=== PATIENT | female | born 1995 | race Asian ===

== ENCOUNTER 2018-10-06 07:25 | Emergency (ER) | payer OTHER, MEDICAID, SELFPAY ==
[2018-10-06 07:30] VITALS: BP 150/90; PULSE 84; RESP 12; TEMP 36.4; O2SAT 99
--- NOTE | 2018-10-06 07:59 | DI.US.S_ITS ---
PROCEDURE: US PELVIC COMPLETE INDICATIONS: ABNORMAL VAGINAL BLEEDING TECHNIQUE: Real-time scanning was performed of the pelvic organs, with image documentation. Additional endovaginal scanning was necessary due to incomplete visualization of the adnexal and endometrial structures by transabdominal scanning. COMPARISON: None. FINDINGS: Transabdominal scanning: Limited scanning through the kidneys shows no hydronephrosis. No pathologic free abdominal or pelvic fluid. Endovaginal scanning: Uterus: Uterus is anteverted measuring 6.3 x 3.5 x 5.1 cm. The endometrium measures 7.2 mm in combined thickness. Ovaries: Ovaries are normal in size and echotexture, measuring 2.4 x 2.2 x 2.7 cm on the right and 2.4 x 1.2 x 2.8 cm on the left. Numerous small ovarian cysts are seen within the ovaries compatible with ovarian follicles. IMPRESSION: Normal pelvic ultrasound exam. No ultrasound findings to explain vaginal bleeding. Dictated by: Geovani Lockwood M.D. on 10/06/2018 at 9:23 Approved by: Geovani Lockwood M.D. on 10/06/2018 at 9:27
--- NOTE | 2018-10-06 08:08 | ED_ITS ---
HPI - Female Genitourinary General Chief complaint: Vaginal Bleeding Stated complaint: vag bleeding x1 day Time Seen by Provider: 10/06/18 07:36 Source: patient Mode of arrival: ambulatory Limitations: no limitations History of Present Illness HPI Narrative: Patient is a 23-year-old female presents with vaginal bleeding. She states that she has not had a period since July she actually was at her physician's office where she had blood work. Yesterday and today she started some very light spotting. She says she has no abdominal pain or cramping. She says this is abnormal for her. She was tested for at the office and again today both are negative. She has appointment with her PCP in 2 days. She denies any nausea vomiting or UTI symptoms or any other symptoms. She states that she is actively trying to get MD Complaint: vaginal bleeding Severity: mild Severity scale (1-10): 1 Relieving factors: none Exacerbating factors: none Vaginal discharge: blood Review of Systems Review of Systems GENERAL: Denies chills, fatigue, malaise, fever, sweats, travel HEENT: Denies sinus pain, ear pain, sore throat, difficulty swallowing, neck pain RESPIRATORY: Denies dyspnea, cough, wheezing, hemoptysis, sputum. CARDIOVASCULAR: Denies chest pain, palpitations, orthopnea, edema GASTROINTESTINAL: Denies nausea, vomiting, abdominal pain, diarrhea, constipation, melena. : Denies dysuria, frequency, incontinence, hematuria, urinary retention, flank pain. MUSCULOSKELETAL: Denies weakness, joint pain, or bony pain SKIN: No rash, no erythema, no pruritus NEUROLOGIC: Denies weakness, dizziness, headache, numbness, change in speech, confusion PSYCHIATRIC: No concerning psychosocial issues. 12 point review of systems is negative except for those stated above and HPI [facility] Medical History Patient denies medical problems (Acute) Smoking Status: Never smoker alcohol intake: never substance use type: does not use Social History Smoking Status: Never smoker alcohol intake: never substance use type: does not use Exam Initial Vital Signs Initial Vital Signs: Vital Signs Temperature 97.6 F 10/06/18 07:30 Pulse Rate 84 10/06/18 07:30 Respiratory Rate 12 10/06/18 07:30 Blood Pressure 150/90 H 10/06/18 07:30 Pulse Oximetry 99 10/06/18 07:30 GENERAL: Well-appearing, well-nourished and in no acute distress. HEENT: Head atraumatic,EOMI, pupils reactive CARDIOVASCULAR: Regular rate and rhythm without murmurs, rubs or gallops. RESPIRATORY: Breath sounds equal bilaterally, no wheezes rales or rhonchi. ABDOMEN: Soft, nontender. Normoactive bowel sounds all 4 quadrants. No guarding or rebound. : No CVA tenderness EXTREMITIES: Normal range of motion, no clubbing or edema. Neurovascularly intact NEUROLOGICAL: Alert and oriented x4.Normal gait and speech. SKIN: Warm, dry, no laceration, no petechiae, no rashes or lesions. Course Orders Ordered: ED Orders 10/06/18 07:59 US pelvic complete Stat Vital Signs - 8 hr 10/06/18 07:30 10/06/18 09:05 Temperature 97.6 F Pulse Rate 84 66 Respiratory Rate 12 16 Blood Pressure 150/90 H 137/76 Pulse Oximetry 99 MDM - Female Genitourinary Lab Data Attestation: I reviewed the patient's lab results. Point of Care Testing Test Results Negative Urine Dip Bedside Urine Glucose Negative Bedside Urine Bilirubin - Negative Bedside Urine Ketone - Negative Urine Specific [place] 1.005 Bedside Urine Occult Blood +++ Bedside Urine pH 6.5 Bedside Urine Protein - Negative Bedside Urine Urobilinogen - Negative Bedside Urine Nitrite - Negative Bedside Urine Leukocytes - Negative Esterase Imaging Data pelvic US: Radiologist's impression: PROCEDURE: US PELVIC COMPLETE INDICATIONS: ABNORMAL VAGINAL BLEEDING TECHNIQUE: Real-time scanning was performed of the pelvic organs, with image documentation. Additional endovaginal scanning was necessary due to incomplete visualization of the adnexal and endometrial structures by transabdominal scanning. COMPARISON: None. FINDINGS: Transabdominal scanning: Limited scanning through the kidneys shows no hydronephrosis. No pathologic free abdominal or pelvic fluid. Endovaginal scanning: Uterus: Uterus is anteverted measuring 6.3 x 3.5 x 5.1 cm. The endometrium measures 7.2 mm in combined thickness. Ovaries: Ovaries are normal in size and echotexture, measuring 2.4 x 2.2 x 2.7 cm on the right and 2.4 x 1.2 x 2.8 cm on the left. Numerous small ovarian cysts are seen within the ovaries compatible with ovarian follicles. IMPRESSION: Normal pelvic ultrasound exam. No ultrasound findings to explain vaginal bleeding. Dictated by: Geovani Lockwood M.D. on 10/06/2018 at 9:23 MDM Narrative Medical decision making narrative: Patient has scant amount of spotting. She has had irregular menses for the last 2 months. I suspect this is her normal menstrual cycle starting. As she is not . Ultrasound is unremarkable. I discussed with her signs and symptoms and when to follow up and return to the ER. She has an appointment with her PCP on which is in 2 days. At this time there is no indication for any blood work or any other testing. Discharge Plan Departure Patient Disposition: Home Clinical Impression: Dysfunctional uterine bleeding Discharge Date/Time: 10/06/18 09:08 Interventions: ED Discharge Assessment Last Done: 10/06/18 09:05 Instructions: DI for Vaginal Bleeding Activity Restrictions/Additional Instructions: *You have been diagnosed with vaginal bleeding *What to do: Vaginal bleeding is likely your body trying to restart a menstrual cycle after not having 1 for number of months. Ultrasound is reassuring and within normal limits. *Continue to take medications as directed *Follow up with your primary care provider as previously arranged this week *Return to ER if you should have heavy vaginal bleeding going through more than 1 super pad or tampon an hour, increased abdominal pain, lightheadedness, dizziness or any new, worsening or concerning symptoms Referrals: Arianna Barahona ARNP [Non-Staff] - Mali Perkins ARNP [Primary Care Provider] - Stand Alone Forms: Work Release Note
[2018-10-06 09:05] VITALS: BP 137/76; PULSE 66; RESP 16
--- NOTE | 2018-10-06 09:06 | PC.NURSE ---
pt wanting to get , reports lower abdominal pain, at times worsen right side. denies fever,vomiting, normal bm today.
== END 2018-10-06 09:08 | disposition home or self-care (01) ==
PROVIDERS: Emergency Provider Emergency Medicine; Family Provider Registered Nurse Women's Health Care, Ambulatory; PCP Registered Nurse Women's Health Care, Ambulatory
DX: N93.8 Other specified abnormal uterine and vaginal bleeding (principal)
CPT/HCPCS: 76830; 76856; 81003; 81025; 99282; 99284

== ENCOUNTER 2020-10-20 20:43 | Emergency (ER) | payer OTHER, MEDICAID, SELFPAY ==
[2020-10-20 20:45] VITALS: BP 141/101; PULSE 109; RESP 21; TEMP 36.8; O2SAT 98
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
[2020-10-20 21:28] VITALS: BP 146/95; PULSE 96; RESP 18; O2SAT 99
== END 2020-10-20 21:36 | disposition home or self-care (01) ==
PROVIDERS: Emergency Provider Emergency Medicine; Family Provider Registered Nurse Women's Health Care, Ambulatory; PCP Registered Nurse Women's Health Care, Ambulatory
DX: F43.0 Acute stress reaction (principal); Y04.8XXA Assault by other bodily force, initial encounter; Z3A.09 9 weeks gestation of pregnancy
CPT/HCPCS: 99281

== ENCOUNTER → 2020-10-26 16:01 | Outpatient (CLI) | payer OTHER, MEDICAID, SELFPAY ==
--- NOTE | 2020-10-26 | DI.US.S_ITS ---
PROCEDURE: US OB <= 14 WEEKS FETUS INDICATIONS: INITIAL SIZING AND DATING OUTSIDE/PRIOR DATING DATA: Last menstrual period (LMP): Not available LMP-based estimated date of delivery (JACQUELINE): Not available. First dating scan (date and location): This study. Estimated date of delivery (JACQUELINE) from first dating scan: 05/18/21 TECHNIQUE: Real-time scanning was performed of the fetus and maternal pelvic organs, with image documentation. Endovaginal scanning was also performed to better visualize the fetus and maternal ovaries. COMPARISON: None. FINDINGS: Embryo: There is a single living intrauterine gestation with crown-rump length 3.9 cm correlated with a gestational age of 10 weeks 6 days, +/-5 days. 168 beats per minute heart rate. Measurement variability in dating: +/- 4 weeks by LMP, +/- 7 days by mean sac diameter (use before 6 weeks gestation if crown-rump length not able to be measured), +/- 5 days by crown-rump length (up to 8 weeks 6 days gestation), +/- 7 days by crown-rump length (up to 13 weeks 6 days gestation). Maternal organs: Ovaries normal considering gestational status . A small right-sided intramural fibroid measuring up to 2.3 cm is noted as an incidental finding. IMPRESSION: Early 1st trimester gestation, 10 weeks 6 day gestational age with delivery date projected to be centered on 05/18/21. Incidental note was made of a midline right intramural small uterine fibroid measuring 2.3 x 1.8 x 1.7 cm. Dictated by: Oscar Malone M.D. on 10/27/2020 at 10:09 Approved by: Oscar Malone M.D. on 10/27/2020 at 10:13
== END ==
PROVIDERS: Family Provider Registered Nurse Women's Health Care, Ambulatory; PCP Family Medicine; Referring Provider Family Medicine; Visit Provider Family Medicine
DX: Z36.87 Encounter for antenatal screening for uncertain dates (principal); O34.11 Maternal care for benign tumor of corpus uteri, first trimester; D25.1 Intramural leiomyoma of uterus; Z3A.10 10 weeks gestation of pregnancy
CPT/HCPCS: 76801

== ENCOUNTER → 2020-12-29 13:09 | Outpatient (CLI) | payer OTHER, MEDICAID, SELFPAY ==
--- NOTE | 2020-12-29 13:15 | DI.US.S_ITS ---
PROCEDURE: US OB >= 14 WEEKS FETUS INDICATIONS: ANATOMY SCAN OUTSIDE/PRIOR DATING DATA: Last menstrual period (LMP): Unknown LMP-based estimated date of delivery (JACQUELINE): Unknown . First dating scan (date and location): 10/26/20 . Estimated date of delivery (JACQUELINE) from first dating scan: 05/18/21 . TECHNIQUE: Real-time scanning was performed of the fetus, with image documentation and biometric measurements. Endovaginal scanning: Not performed COMPARISON: [facility], OB <= 14 WEEKS FETUS, 10/26/2020, 16:53. FINDINGS: General: A single living intrauterine gestation is present. Presentation: Variable. Placenta: Placental position is anterior , without previa. Amniotic fluid index: 20.8 cm, normal range is 5-24 cm. Largest pocket measures 5.8 cm heart rate: 155 beats per minute. Maternal cervical canal: 5.1 cm long. Normal lower limit is 2.5 cm. biometrics: Biparietal diameter: 4.7 cm, 20 weeks 1 day Head circumference: 16.8 cm, 19 weeks 3 days Abdominal circumference: 16.4 cm, 21 weeks 3 days Femur length: 3.1 cm, 19 weeks 3 days Estimated gestational age from initial scan: 20 weeks 0 days Composite gestational age from present scan: 20 weeks 1 day Estimated weight and percentile: 353 g, 70th percentile Measurement variability for biometric dating: +/- 7 days from 14 weeks to 15 weeks 6 days gestation, +/- 10 days from 16 weeks to 21 weeks 6 days gestation, +/- 2 weeks from 22 weeks to 27 weeks 6 days gestation, +/- 3 weeks for 28 weeks gestation or later. weight reference: 4500 g or EFW >90/95% is considered macrosomia or large for gestational age. EFW <10% is small for gestational age. EFW 5% or less is considered intra-uterine growth restriction. Anatomic survey: Neuro: Ventricles are non-dilated at less than 10 mm. Cisterna magna is normal at 3-11 mm. Cerebellum is normal in size and morphology. Incidentally noted right choroid plexus cyst measuring 7 x 6 x 4 mm. Nuchal skin fold: Normal at less than 6 mm between 14-21 weeks gestational age. Face: Nose and lips, facial profile are normal. Spine: No evidence for spina bifida. Heart: 4-chambered heart is present, with normal ventricular outflow tracts. Diaphragm: Diaphragm is intact. Stomach: Left-sided stomach is present. Kidneys: No hydronephrosis. Normal is less than 5 mm in 2nd trimester, less than 7 mm in 3rd trimester. Cord: 3-vessel cord has orthotopic insertion. Bladder: Normal in size. Extremities: All 4 extremities identified. Incidentally noted posterior lower uterine segment fibroid measuring 2.0 x 2.3 x 1.8 cm. IMPRESSION: Single living intrauterine fetus in variable presentation demonstrating expected interval growth as above Isolated right choroid plexus cyst, technically nonspecific finding. Please correlate clinically with aneuploid screening results. Uterine fibroid Dictated by: Brendon Echavarria M.D. on 12/29/2020 at 16:25 Approved by: Brendon Echavarria M.D. on 12/29/2020 at 16:34
== END ==
PROVIDERS: Family Provider Registered Nurse Women's Health Care, Ambulatory; PCP Family Medicine; Referring Provider Family Medicine; Visit Provider Family Medicine
DX: Z36.89 Encounter for other specified antenatal screening (principal); O34.12 Maternal care for benign tumor of corpus uteri, second trimester; Z3A.20 20 weeks gestation of pregnancy
CPT/HCPCS: 76811

== ENCOUNTER → 2021-01-22 11:00 | Outpatient (CLI) | payer OTHER, MEDICAID, SELFPAY ==
--- NOTE | 2021-01-22 11:03 | DI.US.S_ITS ---
PROCEDURE: US OB FOLLOW UP INDICATIONS: REEVALUATE HEART OUTFLOW TRACTS OUTSIDE/PRIOR DATING DATA: First dating scan (date and location): 10/26/2020 . Estimated date of delivery (JACQUELINE) from first dating scan: 05/18/2021 . TECHNIQUE: Real-time scanning was performed of the fetus, with image documentation and biometric measurements. Endovaginal scanning: No COMPARISON: [facility], OB >= 14 WEEKS FETUS, 12/29/2020, 13:32. FINDINGS: General: A single living intrauterine gestation is present. Presentation: Variable. Placenta: Placental position is anterior , without previa. Amniotic fluid index: 16.7 cm, normal range is 5-24 cm. heart rate: 153 beats per minute. Maternal cervical canal: 3.5 cm long. Normal lower limit is 2.5 cm. Estimated gestational age from initial scan: 23 weeks 3 days 2.8 cm intramural fibroid redemonstrated. IMPRESSION: Single living IUP redemonstrated and today's exam demonstrating normal appearance of the four-chamber heart and cardiac outflow tracts. Maternal uterine fibroid redemonstrated similar prior examination . Dictated by: Alex Mejía [facility] Interpreted: Steven Reese MD on 01/22/2021 at 16:53 Transcribed by: KARIN on 01/22/2021 at 16:56 Approved by: Steven Reese M.D. on 01/22/2021 at 17:29
== END ==
PROVIDERS: Family Provider Registered Nurse Women's Health Care, Ambulatory; PCP Family Medicine; Referring Provider Family Medicine; Visit Provider Family Medicine
DX: Z36.2 Encounter for other antenatal screening follow-up (principal); O34.12 Maternal care for benign tumor of corpus uteri, second trimester; D25.1 Intramural leiomyoma of uterus; Z3A.23 23 weeks gestation of pregnancy
CPT/HCPCS: 76816

== ENCOUNTER → 2021-04-20 18:28 | Outpatient (ROUT) | payer OTHER, MEDICAID, SELFPAY | PROVIDERS: Family Provider Registered Nurse Women's Health Care, Ambulatory; PCP Family Medicine; Visit Provider Family Medicine | DX: Z34.00 Encounter for supervision of normal first pregnancy, unspecified trimester (principal) | CPT/HCPCS: 87081 ==

== ENCOUNTER → 2021-05-01 11:05 | Outpatient (CLI) | payer OTHER, MEDICAID, SELFPAY ==
--- NOTE | 2021-05-01 | DI.US.S_ITS ---
PROCEDURE: US OB LIMITED INDICATIONS: SIZE LESS THAN DATES OUTSIDE/PRIOR DATING DATA: Last menstrual period (LMP): Not known. LMP-based estimated date of delivery (JACQUELINE): Not applicable. First dating scan (date and location): October 26, 2020. Estimated date of delivery (JACQUELINE) from first dating scan: May 18, 2021. TECHNIQUE: Real-time scanning was performed of the fetus, with image documentation and biometric measurements. Endovaginal scanning: Perform COMPARISON: [facility] OB FOLLOW UP, 01/22/2021, 11:11. [facility] OB >= 14 WEEKS FETUS, 12/29/2020, 13:32. [facility] OB <= 14 WEEKS FETUS, 10/26/2020, 16:53. FINDINGS: General: A single living intrauterine gestation is present. Presentation: Vertex Placenta: Placental position is anterior, without previa. Amniotic fluid index: 17.8 cm, normal range is 5-24 cm. heart rate: 143 beats per minute. Maternal cervical canal: Not identified biometrics: Biparietal diameter: 37 weeks 0 days Head circumference: 37 weeks 0 days Abdominal circumference: 35 weeks 6 days Femur length: 33 weeks 6 days Estimated gestational age from initial scan: 37 weeks 4 days. Composite gestational age from present scan: 36 weeks 4 days Estimated weight and percentile: 2882 grams; 25th percentile Measurement variability for biometric dating: +/- 7 days from 14 weeks to 15 weeks 6 days gestation, +/- 10 days from 16 weeks to 21 weeks 6 days gestation, +/- 2 weeks from 22 weeks to 27 weeks 6 days gestation, +/- 3 weeks for 28 weeks gestation or later. weight reference: 4500 g or EFW >90/95% is considered macrosomia or large for gestational age. EFW <10% is small for gestational age. EFW 5% or less is considered intra-uterine growth restriction. Other: Not applicable. IMPRESSION: 1. Single living intrauterine . 2. Normal amniotic fluid index. 3. Ultrasound estimated gestational age from present scan 36 weeks 4 days with expected gestational age based on initial scan of 37 weeks 4 days. Estimated weight 2882 grams corresponding to the 25th percentile for gestational age. Dictated by: Parul Siegel MD, PhD on 05/01/2021 at 14:59 Approved by: Parul Siegel MD, PhD on 05/01/2021 at 15:01
== END ==
PROVIDERS: Family Provider Registered Nurse Women's Health Care, Ambulatory; PCP Family Medicine; Referring Provider Family Medicine; Visit Provider Family Medicine
DX: Z34.93 Encounter for supervision of normal pregnancy, unspecified, third trimester (principal); Z3A.36 36 weeks gestation of pregnancy
CPT/HCPCS: 76815

== ENCOUNTER 2021-05-01 11:09 | Outpatient (CLI) | payer OTHER, MEDICAID, SELFPAY | END 2021-05-01 12:59 | disposition home or self-care (01) | LOC: LABOR 12:00 → OB 05-02 08:13 | PROVIDERS: Family Provider Registered Nurse Women's Health Care, Ambulatory; PCP Family Medicine; Referring Provider Family Medicine; Visit Provider Family Medicine | DX: O47.02 False labor before 37 completed weeks of gestation, second trimester (principal); Z3A.36 36 weeks gestation of pregnancy | CPT/HCPCS: 59025; 76815; G0378; G0379 ==

== ENCOUNTER 2021-05-08 11:31 | Outpatient (CLI) | payer OTHER, MEDICAID, SELFPAY | END 2021-05-08 12:25 | disposition home or self-care (01) | LOC: OB 05-30 13:04 | PROVIDERS: Family Provider Registered Nurse Women's Health Care, Ambulatory; PCP Family Medicine; Referring Provider Family Medicine; Visit Provider Family Medicine | DX: Z34.03 Encounter for supervision of normal first pregnancy, third trimester (principal); Z3A.37 37 weeks gestation of pregnancy | CPT/HCPCS: 59025; G0378; G0379 ==

== ENCOUNTER → 2021-05-15 12:12 | Outpatient (CLI) | payer OTHER, MEDICAID, SELFPAY ==
--- NOTE | 2021-05-15 | DI.US.S_ITS ---
PROCEDURE: US OB LIMITED INDICATIONS: SGA OUTSIDE/PRIOR DATING DATA: Last menstrual period (LMP): Unknown . LMP-based estimated date of delivery (JACQUELINE): Unknown . First dating scan (date and location): 10/26/20 . Estimated date of delivery (JACQUELINE) from first dating scan: 05/18/21 . TECHNIQUE: Real-time scanning was performed of the fetus, with image documentation and biometric measurements. Endovaginal scanning: Not performed COMPARISON: [facility] OB FOLLOW UP, 01/22/2021, 11:11. [facility] OB >= 14 WEEKS FETUS, 12/29/2020, 13:32. [facility] OB <= 14 WEEKS FETUS, 10/26/2020, 16:53. [facility] OB LIMITED, 05/01/2021, 10:44. FINDINGS: General: A single living intrauterine gestation is present. Presentation: Vertex. Placenta: Placental position is anterior , without previa. Amniotic fluid index: 15.3 cm, normal range is 5-24 cm. heart rate: 165 beats per minute. biometrics: Biparietal diameter: 9.6 cm, 39 weeks 2 days Head circumference: 33.7 cm, 38 weeks 5 days Abdominal circumference: 33.4 cm, 37 weeks 2 days Femur length: 7.8 cm, 39 weeks 5 days Estimated gestational age from initial scan: 39 weeks 4 days Composite gestational age from present scan: 38 weeks 5 days Estimated weight and percentile: 3459 g, 43rd percentile Measurement variability for biometric dating: +/- 7 days from 14 weeks to 15 weeks 6 days gestation, +/- 10 days from 16 weeks to 21 weeks 6 days gestation, +/- 2 weeks from 22 weeks to 27 weeks 6 days gestation, +/- 3 weeks for 28 weeks gestation or later. weight reference: 4500 g or EFW >90/95% is considered macrosomia or large for gestational age. EFW <10% is small for gestational age. EFW 5% or less is considered intra-uterine growth restriction. Other: Not applicable. IMPRESSION: Single living intrauterine fetus in vertex presentation. Expected interval growth as above Normal SHASTA. Dictated by: Brendon Echavarria M.D. on 05/15/2021 at 15:51 Approved by: Brendon Echavarria M.D. on 05/15/2021 at 15:53
== END ==
PROVIDERS: Family Provider Registered Nurse Women's Health Care, Ambulatory; PCP Family Medicine; Referring Provider Family Medicine; Visit Provider Family Medicine
DX: O36.5930 Maternal care for other known or suspected poor fetal growth, third trimester, not applicable or unspecified (principal); Z3A.38 38 weeks gestation of pregnancy
CPT/HCPCS: 76815

== ENCOUNTER 2021-05-15 12:18 | Outpatient (CLI) | payer OTHER, MEDICAID, SELFPAY | END 2021-05-15 14:00 | disposition home or self-care (01) | LOC: LABOR 13:23 → OB 05-16 15:21 | PROVIDERS: Family Provider Registered Nurse Women's Health Care, Ambulatory; PCP Family Medicine; Referring Provider Family Medicine; Visit Provider Family Medicine | DX: O36.5930 Maternal care for other known or suspected poor fetal growth, third trimester, not applicable or unspecified (principal); Z34.03 Encounter for supervision of normal first pregnancy, third trimester; Z3A.38 38 weeks gestation of pregnancy | CPT/HCPCS: 59025; 76815; G0378; G0379 ==

== ENCOUNTER 2021-05-18 11:30 | Observation (INO) | payer OTHER, MEDICAID, SELFPAY ==
[2021-05-18 13:04] LABS: Add Manual Diff / Slide Review NO; Basophils Absolute Auto 100 /uL (0-100); Basophils Percent Auto 0.5 % (0-2); Eosinophils Absolute Auto 100 /uL (0-450); Eosinophils Percent Auto 1.2 % (2-4); Hematocrit 33.2 % (36-46); Lymphocytes Absolute Auto 1600 /uL (1100-4500); Mean Corpuscular Hemoglobin 27.1 PG (26-34); Mean Corpuscular Volume 82.1 fL (80-100); Monocytes Absolute Auto 800 /uL (0-900); Neutrophils Absolute Auto 9500 /uL (1500-7000); Neutrophils Percent Auto 78.3 % (50-75); Platelet Count 266 X10^3/uL (150-400); Red Blood Cell Count 4.04 X10^6/uL (4.0-5.2); Red Cell Distribution Width 15.9 % (11.6-14.8); White Blood Cell Count 12.1 X10^3/uL (4.5-11.0)
[2021-05-18 13:13] LABS: Aspartate Aminotransferase 30 IU/L (14-36); BUN Creatinine Ratio 20.3 (6-22); Blood Urea Nitrogen 12 mg/dL (7-17); Estimated Glomerular Filt Rate > 60.0 mL/min (>60); Uric Acid 6.5 mg/dL (2.5-6.2)
[2021-05-18 13:16] LABS: Creatinine Urine Random 44.8 mg/dL; Protein (Total) Urine Random 165 mg/dL (0-12); Protein Creatinine Ratio Urine 3.68 GRAM/24H
[2021-05-18 15:30] LABS: COVID19 - ADMIT (NP swab/PCR) Negative (Negative)
== END 2021-05-18 14:16 | disposition home or self-care (01) ==
PROVIDERS: Admitting Provider Family Medicine; Family Provider Registered Nurse Women's Health Care, Ambulatory; PCP Family Medicine; Referring Provider Family Medicine; Visit Provider Family Medicine
DX: Z34.03 Encounter for supervision of normal first pregnancy, third trimester (principal); Z3A.38 38 weeks gestation of pregnancy
CPT/HCPCS: 36415; 59025; 59050; 82570; 84112; 84156; 84450; 84550; 85025; 87635; C9803; G0378; G0379

== ENCOUNTER 2021-05-19 19:53 | Observation (INO) | payer OTHER, MEDICAID, SELFPAY ==
[2021-05-19 20:41] LABS: Add Manual Diff / Slide Review NO; Basophils Absolute Auto 100 /uL (0-100); Basophils Percent Auto 0.6 % (0-2); Eosinophils Absolute Auto 100 /uL (0-450); Eosinophils Percent Auto 1.1 % (2-4); Hematocrit 33.4 % (36-46); Hemoglobin 10.7 g/dL (12.0-16.0); Lymphocytes Absolute Auto 1800 /uL (1100-4500); Lymphocytes Percent Auto 14.1 % (25-40); Mean Corpuscular HGB Conc 32.1 % (30-36); Mean Corpuscular Hemoglobin 26.4 PG (26-34); Mean Corpuscular Volume 82.5 fL (80-100); Monocytes Absolute Auto 800 /uL (0-900); Monocytes Percent Auto 6.8 % (3-14); Neutrophils Absolute Auto 9700 /uL (1500-7000); Neutrophils Percent Auto 77.4 % (50-75); Platelet Count 265 X10^3/uL (150-400); Red Blood Cell Count 4.05 X10^6/uL (4.0-5.2); Red Cell Distribution Width 15.9 % (11.6-14.8); White Blood Cell Count 12.5 X10^3/uL (4.5-11.0)
[2021-05-19 20:47] LABS: Aspartate Aminotransferase 24 IU/L (14-36); BUN Creatinine Ratio 24.5 (6-22); Blood Urea Nitrogen 13 mg/dL (7-17); Estimated Glomerular Filt Rate > 60.0 mL/min (>60); Uric Acid 5.6 mg/dL (2.5-6.2)
[2021-05-19 21:17] LABS: Creatinine Urine Random 61.4 mg/dL
[2021-05-19 21:31] LABS: Protein (Total) Urine Random 303 mg/dL (0-12); Protein Creatinine Ratio Urine 4.93 GRAM/24H
== END 2021-05-19 22:13 | disposition home or self-care (01) ==
LOC: LABOR 19:54
PROVIDERS: Admitting Provider Family Medicine; Family Provider Registered Nurse Women's Health Care, Ambulatory; PCP Family Medicine; Referring Provider Family Medicine; Visit Provider Family Medicine
DX: Z34.03 Encounter for supervision of normal first pregnancy, third trimester (principal); Z3A.38 38 weeks gestation of pregnancy
CPT/HCPCS: 59025; 82570; 84156; 84450; 84550; 85025; G0378; G0379

== ENCOUNTER 2021-05-20 01:36 | Inpatient (IN) | payer OTHER, MEDICAID, SELFPAY ==
[2021-05-20 07:30] LABS: Add Manual Diff / Slide Review NO; Basophils Absolute Auto 100 /uL (0-100); Basophils Percent Auto 0.4 % (0-2); Eosinophils Absolute Auto 200 /uL (0-450); Eosinophils Percent Auto 1.8 % (2-4); Hematocrit 31.9 % (36-46); Hemoglobin 10.3 g/dL (12.0-16.0); Lymphocytes Absolute Auto 2000 /uL (1100-4500); Lymphocytes Percent Auto 15.2 % (25-40); Mean Corpuscular HGB Conc 32.3 % (30-36); Mean Corpuscular Hemoglobin 26.8 PG (26-34); Monocytes Absolute Auto 800 /uL (0-900); Monocytes Percent Auto 6.3 % (3-14); Neutrophils Absolute Auto 10100 /uL (1500-7000); Neutrophils Percent Auto 76.3 % (50-75); Platelet Count 265 X10^3/uL (150-400); Red Blood Cell Count 3.84 X10^6/uL (4.0-5.2); White Blood Cell Count 13.2 X10^3/uL (4.5-11.0)
[2021-05-20] MEDS: LACTATED RINGERS 1,000 ML 100 ML IV (09:15)
[2021-05-20] MEDS: OXYTOCIN PREMIX 30 UNIT/500 ML PLAST..BAG 200 UNIT IV (09:16)
--- NOTE | 2021-05-20 12:46 | PM.OBPNLAB ---
Date/Time Date Patient Seen: 05/20/21 Time Patient Seen: 12:46 Pain Control Comments: managing contractions with breathing Pelvic Exam Dilation (cm): 3.5 Effacement (%): 100 station: -1 Amniotic membrane status: Ruptured Comments: SROM 12am, clear fluid possible forebag Contractions Date/Time contractions began: ongoing, irregular Contractions on admission: irregular Pitocin rate (mU/min): 3 Contraction frequency (min): 3 Contraction duration (min): 1 Contraction pattern: Regular Status status: Category l Heart Rate Baseline: 145 Monitor Decelerations: Absent Monitor Variability: Moderate Comments: reassuring monitoring Assessment and Plan Assessment: active labor Plan: continuous present management Comments: 25-year-old at 40 weeks 1 day gestation based on 10 week ultrasound an unsure LMP with history over the last week of preeclampsia and we have been attempting to induce patient but have not had rooms and staff available in Labor and delivery. We have been monitoring patient closely. She had labs yesterday that were improved and normal platelets, normal BUN and creatinine, normal liver function test, normal uric acid but protein in her urine. She was scheduled for Pitocin induction at 7:00 a.m. this morning however she went home from Labor and delivery late last night and an hour after she got home she had spontaneous rupture membranes of clear fluid at midnight. She then presented to Labor and delivery at about 1:00 a.m.. She was allowed to sleep overnight. Contractions were irregular and Pitocin was started at approximately 8:30 a.m.. She continued to have clear fluid. Now is having some bloody show. She denies headache or abdominal pain She is breathing through contractions comfortably but is considering an epidural. She is GBS negative Blood pressures have been elevated occasional 150s to 160s but now have been in the 140s over 80s repeatedly DTRs are trace and 1-2 beat clonus bilaterally. Trace pitting edema Ultrasound shows no evidence of occiput posterior occiput transverse borderline GDM, well controlled with diet, blood sugar 72, 73
--- NOTE | 2021-05-20 14:17 | PM.OBHP.1 ---
OB HPI Date/Time Date of admission: 05/20/21 Date Patient Seen: 05/20/21 Time Patient Seen: 12:00 History of Present Condition Chief complaint: Evaluation of Labor : 1 Para: 0 Estimated Date of Delivery: 05/19/21 Estimated Gestational Age (weeks): 40 Narrative: Le Bojorquez is a 25 year old female Patient presents to Labor and delivery with complaints of spontaneous rupture membranes. This occurred at 12:00 a.m. on 05/20/2021. Clear fluid. Patient has had irregular uterine contractions. Patient has been monitored frequently due to development of preeclampsia. Her labs, primarily uric acid improved with bedrest and we were attempting to induce her when there was availability in terms of rooms and staff at [facility]. Patient denies any headaches or abdominal pain other than the contractions. She was discharged home from the hospital last night at about 2200 and was home for an hour prior to her rupture membranes. Indications Indication for induction OB: gestational HTN/pre-eclampsia Other reason(s) for admission: Spontaneous rupture membranes, clear fluid History of Present care: good care and initiated at week # (10 weeks of gestation, care was initiated. Patient had approximately 20 visits. Patient had approximately 20 lb weight gain.) Dating criteria: based on 1st trimester US only Ultrasounds: normal 1st trimester US and normal mid trimester US Abnormal ultrasound findings: Choroid plexus cyst was found on ultrasound but no other abnormalities and testing was negative so no further workup was performed Obstetrical complications: preeclampsia Narrative: Patient was noted to have proteinuria about a month ago. It was very mild. Monitoring was begun. Patient developed elevated blood pressures this week. Preeclamptic labs were centrally normal with slight elevation and uric acid which then improved with 24 hours of modified bedrest. Proteinuria has progressed and patient was to be induced for the same but patient had spontaneous onset of rupture membranes. Preadmission Labs Blood type: O (+) positive HCT: 34.7 HCAB: negative PAP: Normal Cell-free DNA: CF DNA normal XX 1 hr GTT: 155 Narrative: 142/143/107 Prior (ies) History: none Evaluation Evaluation Baseline heart rate: 150 Variability: Moderate (11-25) monitor accelerations: Present Monitor Decelerations: Absent Contraction Frequency (minutes): 3 Uterine Contraction Intensity: Moderate Category of Tracing: Reactive Status: Category l Cervical dilation (cm): 3 Cervical effacement (%): 80 station: -1 [facility] [place] Medical History Patient denies medical problems Social History Smoking Status: Never smoker alcohol intake: never substance use type: does not use Meds Home Medications and Allergies Allergies Allergy/AdvReac Type Severity Reaction Status Date / Time No Known Drug Allergies Allergy Verified 05/20/21 14:32 Review of Systems Review of Systems Narrative: negative Exam Narrative Exam Narrative: Blood pressures have been fluctuating. Patient has had several blood pressures 150s to 160s over 90s but then has been more repeatedly 140s over 80s. HEENT unremarkable Neck: Supple Chest: Clear to auscultation without wheezes rhonchi or crackles Cor: Regular rate and rhythm without murmur Abdomen: Gravid, vertex, estimated weight 7 lb Extremities: trace edema. DTRs trace bilateral patella and 2 beat clonus Cervical exam shows she is 3 cm, 100, -1 Objective Labs Result Diagrams: 05/20/21 07:00 Labs: Laboratory Results - last 24 hr 05/20/21 05/20/21 07:00 07:00 WBC 13.2 H RBC 3.84 L Hgb 10.3 L Hct 31.9 L MCV 83.0 MCH 26.8 MCHC 32.3 RDW 16.0 H Plt Count 265 Neut % (Auto) 76.3 H Lymph % (Auto) 15.2 L [place] % (Auto) 6.3 Eos % (Auto) 1.8 L Baso % (Auto) 0.4 Neut # (Auto) 89886 H Lymph # (Auto) 2000 [place] # (Auto) 800 Eos # (Auto) 200 Baso # (Auto) 100 Blood Type O Positive Antibody Screen Negative Assessment and Plan Assessment and Plan Assessment and Plan narrative: 25 yo at 40 weeks gestation with preeclampsia in early active labor continue augmentation with pitocin GBS negative O positive Borderline GDM, will monitor blood sugars CF DNA negative
--- NOTE | 2021-05-20 14:48 | PM.AN.REGBLK ---
Regional Block Pre-procedure Procedure: Continuous Lumbar Epidural for L&D Attending OB provider: Kristine Fuentes PMH/ROS narrative: term SROM, labor, mild preeclampsia, no current Rx, uric acid decreased, BP's mildly elevated, LFT's normal, platelets normal, asymptomatic. ASA Class: II Labs: Hct 31.9 % (36-46) L 05/20/21 07:00 Plt Count 265 X10^3/uL (150-400) 05/20/21 07:00 Medications: Current Medications Generic Name Dose Route Start Last Admin Trade Name Freq PRN Reason Stop Dose Admin Carboprost Tromethamine 250 mcg 05/20/21 06:44 Carboprost 250 Mcg/Ml Ampul IM Q90M PRN Bleeding Lactated Ringer's 1,000 mls @ 100 mls/hr 05/20/21 06:45 05/20/21 09:15 Lactated Ringers IV 100 mls/hr CONT GENARO Administration Oxytocin/Lactated Ringer's 30 unit in 500 mls @ 200 mls/hr 05/20/21 06:44 05/20/21 09:16 Oxytocin Premix IV 200 mls/hr CONT PRN Administration Bleeding Protocol Tranexamic Acid 1,000 mg/ 100 mls @ 200 mls/hr 05/20/21 06:44 Sodium Chloride IV NOW PRN Bleeding Methylergonovine Maleate 0.2 mg 05/20/21 06:44 Methylergonovine 0.2 Mg Tablet PO Q6HR PRN Heavy Bleeding Methylergonovine Maleate 0.2 mg 05/20/21 06:44 Methylergonovine 0.2 Mg/Ml Vial IM NOW PRN Bleeding Misoprostol 800 mcg 05/20/21 06:44 Misoprostol 200 Mcg Tablet TX NOW PRN Bleeding Misoprostol 1,000 mcg 05/20/21 06:44 Misoprostol 200 Mcg Tablet TX NOW PRN Bleeding Misoprostol 400 mcg 05/20/21 06:44 Misoprostol 200 Mcg Tablet SL NOW PRN Bleeding Oxytocin 10 unit 05/20/21 06:44 Oxytocin 10 Unit/Ml Vial IM NOW PRN Bleeding Allergies: Allergies Allergy/AdvReac Type Severity Reaction Status Date / Time No Known Drug Allergies Allergy Verified 05/20/21 14:32 Procedure Insertion date: 05/20/21 Insertion time: 16:10 Prep/Local: betadine x3 and 1% lidocaine Interspace: L3-4 Patient position: sitting Needle: 18 gauge Hustead (CSE: 27g Pencan through Hustead, clear CSF, 1mL 0.25% bupiv) Loss of resistance with: saline MIRANDA at (cm): 6 Catheter placed at SKIN (cm): 1 Catheter in SPACE (cm): 5 Initial Medications TEST DOSE time: 16:12 TEST DOSE: 1.5% lidocaine with epinephrine 1:200k (mL): 3 BOLUS DOSE time: 16:26 BOLUS DOSE (mL): 3 BOLUS DOSE med: other (infusate) Infusion Initial rate (mL/hr): 8 Subsequent interventions: to OR for C Section, intolerance of labor Post-procedure Anesthesia time START: 15:54 Anesthesia time END: 21:50
[2021-05-20] MEDS: PENICILLIN G POTASSIUM 5,000,000 UNIT in DEXTROSE 5% IN WATER 250 ML IV (20:35)
--- NOTE | 2021-05-20 20:37 | PM.OBPNLAB ---
Date/Time Date Patient Seen: 05/20/21 Time Patient Seen: 19:30 Pain Control Comments: epidural and pt comfortably Pelvic Exam Dilation (cm): 7.5 Effacement (%): 100 station: -1 Amniotic membrane status: Ruptured Comments: 20 hours of ROM, clear; PCN given Contractions Contraction frequency (min): 3 Contraction pattern: Regular Contraction intensity: Moderate Status status: Category ll Heart Rate Baseline: 150 Monitor Accelerations: Periodic Monitor Decelerations: Variable Monitor Variability: Moderate Comments: periods of decreased variability and large variable decel with prolonged check and slow recovery Assessment and Plan Assessment: active labor Plan: other Comments: 25-year-old at 40 weeks gestation who had a complicated by borderline gestational diabetes that has been diet controlled and preeclampsia that developed over the last week. Patient presented on day of planned induction with spontaneous rupture of membranes of clear fluid. Ongoing augmentation throughout the day with Pitocin. Epidural placed at approximately 4:30 p.m.. I was called that patient had a anterior lip of but on my exam there is significant molding and baby feels Jr in clinic with significant swelling of the right-sided cervix anterior cervix and patient 7 to 8 cm dilated at -1 station with molding at 0 station. heart tracing has shown a few decelerations into the 70s 80s with prolonged recovery this was associated with exam. There have been periods of decreased variability and accelerations minimally meeting criteria of 15 beats elevation for 15 seconds. Baseline has maintained in the 150s. Mom is afebrile. Lengthy discussion with patient and her significant other, Jadon. Discussed my concern that the baby is asynclitic and becoming stressed. In fact we did decrease the Pitocin and then stop the Pitocin and give IV fluids and oxygen for baby recovery. Mom preferred to give another hour of labor to see is position changed and baby has recovered overall category 2 at this time. If there has been no cervical change then we will proceed with . We have alerted Dr. Koo to be the primary on the and we have alerted anesthesia as well as an OR crew. Will give penicillin IV due to rupture membranes for 20 hours. GBS negative Rh positive Amniotic fluid clear
--- NOTE | 2021-05-20 21:29 | PM.OBPNLAB ---
Date/Time Date Patient Seen: 05/20/21 Time Patient Seen: 21:30 Pain Control Comments: epidural working Pelvic Exam Dilation (cm): 7.5 Effacement (%): 100 station: -1 Amniotic membrane status: Ruptured Contractions Contraction frequency (min): 3 Contraction pattern: Regular Contraction intensity: Moderate Status status: Category ll Heart Rate Baseline: 160 Monitor Accelerations: Episodic Monitor Decelerations: Variable Monitor Variability: Minimal Comments: deceleration with each cervical exam periods of minimal variability and periods of moderate, normal variability Assessment and Plan Assessment: active labor Plan: Comments: Patient without significant cervical change. heart tones baseline is rising to 160 and they were periods of decreased and minimal variability. Again deceleration with cervical exam and slow recovery. Risks and benefits of were discussed with patient and her partner, Jadon. We discussed risks and and potential complications as well as reason for csection. Consent was signed OR crew and Anesthesia and Dr. Koo were notified
--- NOTE | 2021-05-20 21:43 | PM.PREOP ---
Pre-operative Note COVID-19 COVID-19 status: Negative Result date/Date tested (Pos, Neg/Pending): 05/19/21 Interval Note History & Physical reviewed/Exam performed by Physician: Yes Changes to H&P: No
--- NOTE | 2021-05-20 22:15 | SUR.OPER ---
Supine on Padded OR bed, head on pillow, safety belt at thigh, arms secured on padded arm boards at <90 degrees abduction. Bump under right buttock. Legs uncrossed with pillow under knees, gel pad to heels, tape over blanket to lower legs.
--- NOTE | 2021-05-20 22:18 | SUR.OPER ---
FHT's 168. Time of 2216 live female. Cord blood x 2 and placenta with OB RN
--- NOTE | 2021-05-20 23:30 | PM.OP.1 ---
Operative Date/Time/Diagnoses Date of procedure: 05/20/21 Time of procedure: 23:30 Pre-op diagnosis: Term intrauterine . 1st stage labor failure. distress. Post-op diagnosis: same Procedure & Clinicians Procedure: Primary Same procedure as scheduled: Yes Indications: first stage labor failure distress Surgeon: Jonnathan Koo Lithographic Photographer: Kristine Fuentes Click Yes if Unassisted: No Anesthesia Type: Epidural Operative Notes Findings: Viable female , occiput posterior, Apgars 9 and 9. 7 lb 7 oz. Normal pelvic organs. Cord pH venous 7.3 Closure Type: primary Specimen(s): none sent Estimated Blood Loss (mL): 400 Blood products transfused: none Procedure in detail: Patient had consent discussed was signed in labor and delivery. Patient was then brought to operative theater when room was available. All scopes protocols were followed. Antibiotics were not given because she was on penicillin already was transferred to the operative table without complications placed in a wedged supine position. Valle was already present. heart tones were stable prior to procedure. Prepped and draped in the usual manner. Pfannenstiel incision was then made in the usual manner sharp dissection down to the fascia. Blunt dissection was used to extend the subcutaneous tissue. One bleeder was noted and hemoccult her a was used to eliminated. Fascia was done scored with the scalp full in the midline and then extended laterally with Lizarraga scissors. This was not equal on both sides. Kochers were then used to grasp the superior aspect of the fascia and bluntly dissected. The midline was and elevated with curved Lizarraga scissors. This was repeated inferior without complications. The midline muscle was then with blunt dissection. The peritoneum was then isolated and entered under direct visualization. It was extended with blunt dissection bladder blade was then placed. Bladder flap was then created with scissors under direct visualization was extended bluntly. Bladder blade was then placed into the bladder flap. A low-transverse incision was then undertaken 1st scored with the scalp full and then midline was then taken down until clear fluid was noted. Incision was then bluntly extended period head was slightly impacted into into the pelvis and was elevated after small amount of effort. Head then delivered easily. No nuchal cord. Mouth and nose were then bulb suctioned and the rest of the baby delivered without complications was crying immediately. No resuscitation was required. Due to the concern for distress prior cord gases were then obtained. Cord bloods were then obtained. Placenta was then delivered manually. Wet lap was then used to swiped the inside of the uterus for any remaining products of conception. This was repeated x1. The corners the uterine incision were then identified and grasped with ring forceps along with inferior aspect of the uterine incision. Uterine incision was closed with running 0 chromic locked suture line. Left hand of the incision inferiorly was bleeding slightly and a 2nd imbricating stitch was then done. On the left side locking was continued right side looked good and was not locked. Irrigation was then done with normal saline to peritoneal contents and removed. Incision was re-evaluated and found to be dry. Bladder flap was then closed with running 3-0 Vicryl. Peritoneum was then closed with running 2-0 Vicryl. Fascia was then closed with running 0 Vicryl. Irrigation was done through subcutaneous tissue. And removed. Three 3-0 Vicryl interrupted sutures were used to close subcutaneous tissue. Running 4-0 Vicryl subcutaneous was used to close incision. Usual dressing was applied. All sponge instrument and needle counts were correct. Mother and infant were in stable condition. Post-operative Plan for aftercare: Transfer to labor and delivery for routine aftercare
[2021-05-21] MEDS: KETOROLAC 30 MG/ML VIAL IV ×3 (03:03→15:19)
[2021-05-21] MEDS: ACETAMINOPHEN 325 MG TABLET 650 MG PO ×2 (08:17→14:18)
[2021-05-21] MEDS: LANOLIN OINT 7 GM 1 APPLIC TOP (08:18)
--- NOTE | 2021-05-21 08:29 | PM.PN.1 ---
Subjective Subjective Date Patient Seen: 05/21/21 Time Patient Seen: 08:29 Interval history: Patient seen postop day 1. Patient did not sleep well last night. But otherwise is feeling well. Pain is medium in intensity. Minimal bleeding. No other changes. Exam Narrative Exam Narrative: Alert female smiling in no acute distress lungs are clear. Heart regular rate and rhythm. Uterus is firm at umbilicus. Extremities without edema. No calf tenderness Objective Labs Result Diagrams: 05/20/21 07:00 [facility] Medical History Patient denies medical problems Social History Smoking Status: Never smoker alcohol intake: never substance use type: does not use Assessment & Plan Assessment & Plan narrative: . Postop day 1. Doing well. Minimal bleeding. Will get up and remove Valle. Otherwise routine care. Follow up a.m.. Time Spent With Patient Critical Care time: I spent a total of [] minutes of critical care time on this patient's care today; this time is exclusive of procedural time.
[2021-05-21] MEDS: PRENATAL VIT,CALC/IRON/FOLIC 1 TABLET 1 TAB PO (09:32)
[2021-05-21] MEDS: DOCUSATE 100 MG CAPSULE PO (09:32)
[2021-05-21 11:54] LABS: Add Manual Diff / Slide Review NO; Basophils Absolute Auto 100 /uL (0-100); Basophils Percent Auto 0.3 % (0-2); Eosinophils Absolute Auto 0 /uL (0-450); Eosinophils Percent Auto 0.1 % (2-4); Hemoglobin 8.8 g/dL (12.0-16.0); Lymphocytes Absolute Auto 1600 /uL (1100-4500); Lymphocytes Percent Auto 7.5 % (25-40); Mean Corpuscular HGB Conc 32.5 % (30-36); Mean Corpuscular Hemoglobin 26.9 PG (26-34); Mean Corpuscular Volume 82.7 fL (80-100); Monocytes Absolute Auto 1200 /uL (0-900); Monocytes Percent Auto 5.7 % (3-14); Neutrophils Absolute Auto 18300 /uL (1500-7000); Neutrophils Percent Auto 86.4 % (50-75); Platelet Count 216 X10^3/uL (150-400); Red Blood Cell Count 3.26 X10^6/uL (4.0-5.2); Red Cell Distribution Width 16.1 % (11.6-14.8); White Blood Cell Count 21.1 X10^3/uL (4.5-11.0)
[2021-05-21 18:08] LABS: Hepatitis B Surface Antigen NEGATIVE s/c (NEGATIVE)
[2021-05-21] MEDS: IBUPROFEN 600 MG TABLET PO (22:30)
[2021-05-21] MEDS: OXYCODONE/ACETAMINOPHEN 5/325 TABLET 1 TAB PO (23:19)
[2021-05-22] MEDS: DOCUSATE 100 MG CAPSULE PO (07:40)
[2021-05-22] MEDS: PRENATAL VIT,CALC/IRON/FOLIC 1 TABLET 1 TAB PO (07:41)
[2021-05-22] MEDS: ACETAMINOPHEN 325 MG TABLET 650 MG PO (07:41)
[2021-05-22] MEDS: IBUPROFEN 600 MG TABLET PO (07:41)
--- NOTE | 2021-05-22 08:34 | PM.OBDS.1 ---
Discharge Providers Provider Date of admission: 05/20/21 01:36 Discharge Date: 05/22/21 Primary care physician: Kristine Fuentes MD Consults: 05/21/21 08:07 Consult to Customer Experience Intern Routine Comment: Discharge provider: Jonnathan Koo MD Summary Hospital Course Date Patient Seen: 05/20/21 Time Patient Seen: 08:34 Diagnoses: Term intrauterine . Her 1st stage failure to progress occiputt posterior. distress Hospital Course: Patient was admitted and attempted delivery greater than 20 our rupture. Failed 1st stage. Elected for of emergent section. Patient returned to room in stable condition. Pain was well controlled. Patient had minimal bleeding. She was up on day 1 and Valle was discontinued. She was continuing to have minimal bleeding vital signs were stable pain was well controlled. She was seen on day 2 and doing well. Asking to go home. Will be discharged today. Routine post Education done. Questions answered follow up with Dr. Fuentes in 1 week me in 2 weeks. Peripartum Data Infant Delivery Method: Section Procedures: Primary low transverse section Status at Discharge Cognitive/behavioral status at discharge: oriented Functional status at discharge: independent ambulation Overall status at discharge: patient is progressing back to baseline Time Spent with Patient Time attestation: Total time spent providing and/or coordinating discharge services: Objective Labs Result Diagrams: 05/21/21 06:28 Labs: Laboratory Results - last 24 hr 05/21/21 05/21/21 05/21/21 06:25 06:28 06:28 WBC 21.1 H D RBC 3.26 L Hgb 8.8 L Hct 27.0 L MCV 82.7 MCH 26.9 MCHC 32.5 RDW 16.1 H Plt Count 216 Neut % (Auto) 86.4 H Lymph % (Auto) 7.5 L [place] % (Auto) 5.7 Eos % (Auto) 0.1 L Baso % (Auto) 0.3 Neut # (Auto) 72108 H Lymph # (Auto) 1600 [place] # (Auto) 1200 H Eos # (Auto) 0 Baso # (Auto) 100 Hep Bs Antigen Negative Antibody Screen Negative Exam Vital Signs (past 8 hours): Alert female in no acute distress lungs are clear. Heart regular rate and rhythm. Abdomen is soft positive bowel sounds nontender fundus is at umbilicus and firm. Moderate to mild tenderness. No erythema. Extremities without calf tenderness no other changes Discharge Plan Discharge Plan Patient Disposition: Home Discharge orders & Medications Prescriptions: New docusate sodium 100 mg Capsule 100 mg PO BID PRN (Reason: Constipation) Qty: 60 RF: 0 ibuprofen 600 mg Tablet 600 mg PO Q6H PRN (Reason: Fever/Mild Pain (1-3)) Qty: 90 RF: 0 oxycodone-acetaminophen 5-325 mg Tablet 1 tab PO Q4H PRN (Reason: Pain, Moderate (4-6)) Qty: 20 RF: 0 Follow up/Referrals: Jonnathan Koo MD [Physician] - 06/04/21 Kristine Fuentes MD [Primary Care Provider] - 05/28/21 (Please call for appointment) Discharge Health Status Multidrug resistant organism: No MDRO Diet/Activity/Treatments Diet: Diet as Tolerated Activity: As tolerated. No lifting greater than 15 lb Skin/Wound/Dressing Care Report to your healthcare provider any signs of infection, such as:: chills, fever, increased pain and unusual redness Dressing: No treatment needed until dressing removed in 1 week Discharge Data Primary Care Provider: Kristine Fuentes
[2021-05-22] MEDS: OXYCODONE/ACETAMINOPHEN 5/325 TABLET 1 TAB PO ×2 (09:45→14:04)
== END 2021-05-22 14:46 | disposition home or self-care (01) | DRG 788 ==
PROVIDERS: Family Medicine; Admitting Provider Family Medicine; Family Provider Registered Nurse Women's Health Care, Ambulatory; PCP Family Medicine; Referring Provider Family Medicine; Visit Provider Family Medicine
PROC: 10D00Z1 Extraction of Products of Conception, Low, Open Approach (ICD-10-PCS; CPT 59514; principal; 2021-05-20 22:00)
DX: O14.94 Unspecified pre-eclampsia, complicating childbirth (principal); Z3A.40 40 weeks gestation of pregnancy; Z37.0 Single live birth; O63.0 Prolonged first stage (of labor); O76 Abnormality in fetal heart rate and rhythm complicating labor and delivery; O24.429 Gestational diabetes mellitus in childbirth, unspecified control; Z34.03 Encounter for supervision of normal first pregnancy, third trimester; Z3A.38 38 weeks gestation of pregnancy
CPT/HCPCS: 01967; 01968; 36415; 59025; 59050; 82570; 84112; 84156; 84450; 84550; 85025; 86850; 86900; 86901; 87340; 87635; C9803; G0378; G0379; J1885; J2274; J2540; J2590; J3010

== ENCOUNTER → 2021-11-16 12:56 | Outpatient (CLI) | payer OTHER, MEDICAID, SELFPAY ==
--- NOTE | 2021-11-16 12:58 | DI.US.S_ITS ---
PROCEDURE: US OB LIMITED INDICATIONS: INITIAL DATING OUTSIDE/PRIOR DATING DATA: Last menstrual period (LMP): July 15, 2022 LMP-based estimated date of delivery (JACQUELINE): April 21, 2022 First dating scan (date and location): November 16, 2021, [facility]. Estimated date of delivery (JACQUELINE) from first dating scan: April 30, 2022. TECHNIQUE: Real-time scanning was performed of the fetus, with image documentation. Endovaginal scanning: Not performed COMPARISON: [facility], , OB LIMITED, 05/15/2021, 12:38. FINDINGS: A single living intrauterine gestation is present. Presentation: Vertex Placenta: Placental position is posterior, without previa. Lower placental edge 0.5 to 3 cm from internal cervical os qualifies as low lying placenta. Marginal previa is defined as lower edge 0 to 0.5 mm from internal os. Amniotic fluid index: 9.8 cm, normal range is 5-24 cm. heart rate: 157 beats per minute. Maternal cervical canal: 3.9 cm long. Normal lower limit is 2.5 cm. Composite gestational age today: 16 weeks, 3 days IMPRESSION: Single live intrauterine gestation with a composite gestational age of 16 weeks, 3 days. Dictated by: Sherly Ferrer M.D. on 11/16/2021 at 15:30 Approved by: Sherly Ferrer M.D. on 11/16/2021 at 15:35
== END ==
PROVIDERS: Family Provider Registered Nurse Women's Health Care, Ambulatory; PCP Family Medicine; Referring Provider Family Medicine; Visit Provider Family Medicine
DX: Z36.87 Encounter for antenatal screening for uncertain dates (principal); Z3A.16 16 weeks gestation of pregnancy
CPT/HCPCS: 76815

== ENCOUNTER → 2022-01-14 19:14 | Outpatient (ROUT) | payer OTHER, MEDICAID, SELFPAY ==
[2022-01-14 20:57] LABS: Urine N gonorrhoeae NOT DETECTED
[2022-01-14 21:03] LABS: Urine Chlamydia NOT DETECTED
== END ==
PROVIDERS: Family Provider Registered Nurse Women's Health Care, Ambulatory; PCP Family Medicine; Visit Provider Obstetrics & Gynecology
DX: Z34.82 Encounter for supervision of other normal pregnancy, second trimester (principal); Z3A.26 26 weeks gestation of pregnancy
CPT/HCPCS: 87491; 87591

== ENCOUNTER → 2022-01-28 13:08 | Outpatient (CLI) | payer OTHER, MEDICAID, SELFPAY ==
[2022-01-28 14:28] LABS: Hematocrit 33.5 % (36-46); Hemoglobin 11.4 g/dL (12.0-16.0)
[2022-01-28 14:34] LABS: GTT (PREG) 1 Hour PP 50gm Dose 135 mg/dL (76-139)
== END ==
PROVIDERS: Family Provider Registered Nurse Women's Health Care, Ambulatory; PCP Family Medicine; Referring Provider Obstetrics & Gynecology; Visit Provider Obstetrics & Gynecology
DX: Z34.90 Encounter for supervision of normal pregnancy, unspecified, unspecified trimester (principal); Z3A.26 26 weeks gestation of pregnancy
CPT/HCPCS: 36415; 82950; 85014; 85018

== ENCOUNTER 2022-03-08 16:01 | Outpatient (CLI) | payer OTHER, MEDICAID, SELFPAY ==
[2022-03-08 17:28] LABS: Add Manual Diff / Slide Review NO; Basophils Absolute Auto 100 /uL (0-100); Basophils Percent Auto 0.5 % (0-2); Eosinophils Absolute Auto 200 /uL (0-450); Eosinophils Percent Auto 1.6 % (2-4); Hematocrit 33.5 % (36-46); Hemoglobin 11.2 g/dL (12.0-16.0); Lymphocytes Absolute Auto 1700 /uL (1100-4500); Lymphocytes Percent Auto 11.8 % (25-40); Mean Corpuscular HGB Conc 33.5 % (30-36); Mean Corpuscular Hemoglobin 27.1 PG (26-34); Mean Corpuscular Volume 80.8 fL (80-100); Monocytes Absolute Auto 900 /uL (0-900); Monocytes Percent Auto 6.1 % (3-14); Neutrophils Absolute Auto 11300 /uL (1500-7000); Platelet Count 270 X10^3/uL (150-400); Red Blood Cell Count 4.14 X10^6/uL (4.0-5.2); Red Cell Distribution Width 14.7 % (11.6-14.8); White Blood Cell Count 14.1 X10^3/uL (4.5-11.0)
[2022-03-08 17:38] LABS: Aspartate Aminotransferase 21 IU/L (14-36); BUN Creatinine Ratio 18.4 (6-22); Blood Urea Nitrogen 9 mg/dL (7-17); Estimated Glomerular Filt Rate > 60 mL/min (>60); Uric Acid 4.6 mg/dL (2.5-6.2)
== END 2022-03-08 17:15 | disposition home or self-care (01) ==
LOC: OB 03-12 08:36
PROVIDERS: Family Provider Registered Nurse Women's Health Care, Ambulatory; PCP Family Medicine; Referring Provider Obstetrics & Gynecology; Visit Provider Obstetrics & Gynecology
DX: O13.3 Gestational [pregnancy-induced] hypertension without significant proteinuria, third trimester (principal); O47.03 False labor before 37 completed weeks of gestation, third trimester; Z3A.32 32 weeks gestation of pregnancy
CPT/HCPCS: 59025; 84450; 84550; 85025; G0378; G0379

== ENCOUNTER 2022-03-15 09:11 | Outpatient (CLI) | payer OTHER, MEDICAID, SELFPAY | END 2022-03-15 10:03 | disposition home or self-care (01) | LOC: LABOR 09:49 → OB 03-18 16:26 | PROVIDERS: Family Provider Registered Nurse Women's Health Care, Ambulatory; PCP Family Medicine; Referring Provider Obstetrics & Gynecology; Visit Provider Obstetrics & Gynecology | DX: O13.3 Gestational [pregnancy-induced] hypertension without significant proteinuria, third trimester (principal); Z3A.33 33 weeks gestation of pregnancy | CPT/HCPCS: 59025; G0378; G0379 ==

== ENCOUNTER 2022-03-22 12:07 | Outpatient (CLI) | payer OTHER, MEDICAID, SELFPAY | END 2022-03-22 13:00 | disposition home or self-care (01) | LOC: LABOR 12:28 → OB 03-26 08:27 | PROVIDERS: Family Provider Registered Nurse Women's Health Care, Ambulatory; PCP Family Medicine; Referring Provider Obstetrics & Gynecology; Visit Provider Obstetrics & Gynecology | DX: O13.3 Gestational [pregnancy-induced] hypertension without significant proteinuria, third trimester (principal); Z3A.34 34 weeks gestation of pregnancy | CPT/HCPCS: 59025; G0378; G0379 ==

== ENCOUNTER 2022-03-29 13:01 | Observation (INO) | payer OTHER, MEDICAID, SELFPAY | END 2022-03-29 15:35 | disposition home or self-care (01) | PROVIDERS: Admitting Provider Obstetrics & Gynecology; Family Provider Registered Nurse Women's Health Care, Ambulatory; PCP Family Medicine; Referring Provider Obstetrics & Gynecology; Visit Provider Obstetrics & Gynecology | DX: O24.419 Gestational diabetes mellitus in pregnancy, unspecified control (principal); O13.3 Gestational [pregnancy-induced] hypertension without significant proteinuria, third trimester; Z3A.36 36 weeks gestation of pregnancy | CPT/HCPCS: 59025; 59050; G0378; G0379 ==

== ENCOUNTER → 2022-04-05 08:21 | Outpatient (CLI) | payer OTHER, MEDICAID, SELFPAY ==
[2022-04-06 09:31] LABS: Strep Grp B PCR POS for Grp B Strep
== END ==
PROVIDERS: Family Provider Registered Nurse Women's Health Care, Ambulatory; PCP Family Medicine; Visit Provider Obstetrics & Gynecology
DX: Z34.83 Encounter for supervision of other normal pregnancy, third trimester (principal); Z3A.36 36 weeks gestation of pregnancy
CPT/HCPCS: 87086; 87653

== ENCOUNTER → 2022-04-05 10:02 | Outpatient (CLI) | payer OTHER, MEDICAID, SELFPAY | LOC: LABOR 10:27 → OB 04-17 11:38 | PROVIDERS: Family Provider Registered Nurse Women's Health Care, Ambulatory; PCP Family Medicine; Referring Provider Obstetrics & Gynecology; Visit Provider Obstetrics & Gynecology | DX: O24.419 Gestational diabetes mellitus in pregnancy, unspecified control (principal); O13.3 Gestational [pregnancy-induced] hypertension without significant proteinuria, third trimester; Z3A.36 36 weeks gestation of pregnancy; Z34.83 Encounter for supervision of other normal pregnancy, third trimester | CPT/HCPCS: 59025; 87086; 87653; G0378; G0379 ==

== ENCOUNTER 2022-04-11 13:46 | Outpatient (CLI) | payer OTHER, MEDICAID, SELFPAY | END 2022-04-11 14:30 | disposition home or self-care (01) | LOC: OB 04-15 12:54 | PROVIDERS: Family Provider Registered Nurse Women's Health Care, Ambulatory; PCP Family Medicine; Referring Provider Obstetrics & Gynecology; Visit Provider Obstetrics & Gynecology | DX: O13.3 Gestational [pregnancy-induced] hypertension without significant proteinuria, third trimester (principal); Z3A.37 37 weeks gestation of pregnancy | CPT/HCPCS: 59025; G0378; G0379 ==

== ENCOUNTER → 2022-04-12 15:04 | Outpatient (CLI) | payer OTHER, MEDICAID, SELFPAY ==
[2022-04-12 15:28] LABS: Add Manual Diff / Slide Review NO; Basophils Absolute Auto 0 /uL (0-100); Basophils Percent Auto 0.3 % (0-2); Eosinophils Absolute Auto 100 /uL (0-450); Eosinophils Percent Auto 0.8 % (2-4); Hematocrit 35.8 % (36-46); Hemoglobin 11.8 g/dL (12.0-16.0); Lymphocytes Absolute Auto 1500 /uL (1100-4500); Lymphocytes Percent Auto 13.8 % (25-40); Mean Corpuscular HGB Conc 32.8 % (30-36); Mean Corpuscular Hemoglobin 26.9 PG (26-34); Mean Corpuscular Volume 81.9 fL (80-100); Monocytes Absolute Auto 600 /uL (0-900); Monocytes Percent Auto 5.6 % (3-14); Neutrophils Absolute Auto 8900 /uL (1500-7000); Neutrophils Percent Auto 79.5 % (50-75); Platelet Count 275 X10^3/uL (150-400); Red Blood Cell Count 4.38 X10^6/uL (4.0-5.2); Red Cell Distribution Width 16.2 % (11.6-14.8); White Blood Cell Count 11.2 X10^3/uL (4.5-11.0)
[2022-04-12 17:19] LABS: Protein (Total) Urine Random 345 mg/dL (0-12); Protein Creatinine Ratio Urine 3.08 GRAM/24H
[2022-04-12 18:11] LABS: Alanine Aminotransferase 18 IU/L (<35); Aspartate Aminotransferase 32 IU/L (14-36); BUN Creatinine Ratio 22.6 (6-22); Blood Urea Nitrogen 12 mg/dL (7-17); Estimated Glomerular Filt Rate > 60 mL/min (>60); Uric Acid 6.1 mg/dL (2.5-6.2)
== END ==
PROVIDERS: Family Provider Registered Nurse Women's Health Care, Ambulatory; PCP Family Medicine; Referring Provider Obstetrics & Gynecology; Visit Provider Obstetrics & Gynecology
DX: I10 Essential (primary) hypertension (principal); Z34.83 Encounter for supervision of other normal pregnancy, third trimester; Z3A.37 37 weeks gestation of pregnancy
CPT/HCPCS: 36415; 82565; 82570; 84156; 84450; 84460; 84520; 84550; 85025

== ENCOUNTER 2022-04-19 13:24 | Outpatient (CLI) | payer OTHER, MEDICAID, SELFPAY | END 2022-04-19 14:12 | disposition home or self-care (01) | LOC: LABOR 13:35 → OB 04-22 10:17 | PROVIDERS: Family Provider Registered Nurse Women's Health Care, Ambulatory; PCP Family Medicine; Referring Provider Obstetrics & Gynecology; Visit Provider Obstetrics & Gynecology | DX: O13.3 Gestational [pregnancy-induced] hypertension without significant proteinuria, third trimester (principal); Z3A.38 38 weeks gestation of pregnancy | CPT/HCPCS: 59025; G0378; G0379 ==

== ENCOUNTER 2022-04-22 06:01 | Inpatient (IN) | payer OTHER, MEDICAID, SELFPAY ==
[2022-04-22 06:45] VITALS: BP 142/82
[2022-04-22] MEDS: LACTATED RINGERS 1,000 ML 100 ML IV ×3 (06:48→19:52)
[2022-04-22 06:56] LABS: Mean Corpuscular Volume 80.7 fL (80-100); Red Cell Distribution Width 16.4 % (11.6-14.8)
[2022-04-22 07:00] LABS: Add Manual Diff / Slide Review NO; Basophils Absolute Auto 100 /uL (0-100); Basophils Percent Auto 0.5 % (0-2); Eosinophils Absolute Auto 200 /uL (0-450); Eosinophils Percent Auto 1.4 % (2-4); Hematocrit 34.5 % (36-46); Hemoglobin 11.5 g/dL (12.0-16.0); Lymphocytes Absolute Auto 1900 /uL (1100-4500); Mean Corpuscular HGB Conc 33.4 % (30-36); Monocytes Absolute Auto 800 /uL (0-900); Monocytes Percent Auto 5.9 % (3-14); Neutrophils Absolute Auto 9800 /uL (1500-7000); Neutrophils Percent Auto 77.2 % (50-75); Platelet Count 251 X10^3/uL (150-400); Red Blood Cell Count 4.28 X10^6/uL (4.0-5.2); White Blood Cell Count 12.7 X10^3/uL (4.5-11.0)
--- NOTE | 2022-04-22 07:20 | PM.PREOP ---
Pre-operative Note COVID-19 COVID-19 status: Result pending Result date/Date tested (Pos, Neg/Pending): 04/22/22 Criteria for continued procedure: Delay expected to result in less-positive ultimate med/surg outcome Interval Note History & Physical reviewed/Exam performed by Physician: Yes Changes to H&P: No
--- NOTE | 2022-04-22 07:22 | P.HPOB_ITS ---
OB HPI Date/Time Date of admission: 04/22/22 Date Patient Seen: 04/22/22 Time Patient Seen: 07:22 History of Present Condition Chief complaint: REPEAT : 2 Para: 1 Estimated Date of Delivery: 04/30/22 Estimated Gestational Age (weeks): 39 Narrative: Le Bojorquez is a 26 year old female admitted for repeat section Indications Operative indications ( section): previous uterine surgery History of Present care: good care, initiated at week # (16), number of visits (7) and pounds weight gain (60) Dating criteria: based on LMP only Ultrasounds: normal mid trimester US Abnormal ultrasound findings: Initially stomach not well seen but follow-up was visible by MFM Obstetrical complications: gestational diabetes (Diet controlled) Medical complications: cardiovascular (Hypertension on b.i.d. labetalol) Preadmission Labs Blood type: O (+) positive -: Antibody screen: negative, GBS status: positive, HBsAG: negative, HIV: negat kennedy, HSV 1: negative, HSV 2: negative and RPR/VDLR: negative -: Chlamydia screen: not detected and Gonorrhea screen: not detected -: Rubella: immune and Varicella: immune HCAB: negative Cell-free DNA: Normal female 1 hr GTT: 135 Prior (ies) History: 05/29/2021 primary section for failure to progress 7 lb 7 oz female Evaluation Evaluation Baseline heart rate: 140 Variability: Moderate (11-25) monitor accelerations: Present Monitor Decelerations: Absent Contraction Frequency (minutes): 0 Status: Category l PFSH Medical History (Updated 03/12/22 @ 11:33 by Ariane Gomez MD) delivery delivered Encounter for supervision of normal , unspecified, unspecified trimester Gestational diabetes Patient denies medical problems Surgical History (Updated 01/10/22 @ 08:49 by Lindsey York, DEREK) [place] teeth extracted Family History (Updated 01/10/22 @ 08:51 by Lindsey York, DEREK) Mother Diabetes mellitus Social History (Updated 12/31/21 @ 14:05 by Lindsey York, RN) marital status: unmarried,living together number of children: 1 household members: significant other and children lives independently: Yes housing: condominium pets and animals: No education level: college (Associate degree) 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) special jazmyne needs: No travel history: over 6 months ago seatbelt use: always water heater temp set < 120 deg: Yes working smoke detector in home: Yes fire extinguisher in home: Yes carbon monox detector in home: Yes firearms in home: No do you feel safe at home: Yes Smoking Status: Never smoker second hand exposure: No alcohol intake: never substance use type: does not use during the past year weight has: other (Got again before original baby weight lost.) well-balanced diet: daily or most days daily servings fruits/ve-4 caffeine: Yes Type(s) of exercise: walking frequency: 1-2 times per week Meds Home Medications and Allergies Home Medications Medication Instructions Recorded Confirmed Type prenat.vits,coy,lrk-ekbw-lgvrq 1 tab PO DAILY 01/10/22 04/22/22 History labetalol 100 mg tablet 100 mg PO DAILY #30 tabs 02/14/22 04/22/22 Rx Allergies Allergy/AdvReac Type Severity Reaction Status Date / Time No Known Drug Allergies Allergy Verified 04/22/22 06:04 Review of Systems Review of Systems Narrative: Patient denies vaginal bleeding. Good movement. No leakage of fluid. No contractions. No headaches, scotomata, epigastric pain. OB Exam Narrative Exam Narrative: Blood pressure 135/70, pulse of 82 temperature 96.9? HEENT exam within normal limits. Lungs are clear to auscultation and percussion. Heart is regular rate and rhythm no S3-S4 murmurs. Abdomen is grav id. Extremities without edema and nontender. Objective Labs Result Diagrams: 04/22/22 06:40 Labs: Laboratory Results - last 24 hr 04/22/22 06:40 WBC 12.7 H RBC 4.28 Hgb 11.5 L Hct 34.5 L MCV 80.7 MCH 27.0 MCHC 33.4 RDW 16.4 H Plt Count 251 Neut % (Auto) 77.2 H Lymph % (Auto) 15.0 L [place] % (Auto) 5.9 Eos % (Auto) 1.4 L Baso % (Auto) 0.5 Neut # (Auto) 9800 H Lymph # (Auto) 1900 [place] # (Auto) 800 Eos # (Auto) 200 Baso # (Auto) 100 Assessment and Plan Assessment and Plan Assessment and Plan narrative: 39 week gestation with prior section for repeat section Time Spent with Patient Total time spent with greater than 50% in coordination of care (as documented) at patient's floor/unit and/or counseling patient:: less than 15 minutes
[2022-04-22] MEDS: CITRIC ACID/SODIUM CITRATE 15 ML SOLUTION 30 ML PO (07:38)
[2022-04-22 07:40] LABS: COVID19 -Nasal RAPID Negative (Negative)
[2022-04-22] MEDS: CEFAZOLIN 2 GM/100 ML PREMIX 100 ML IV (07:55)
--- NOTE | 2022-04-22 08:24 | SUR.OPER ---
LIVE BABY GIRL TOB 0820
--- NOTE | 2022-04-22 08:34 | SUR.OPER ---
PLACENTA AND CORD BLOOD GIVEN TO OB RN.
[2022-04-22 09:00] VITALS: BP 124/99; PULSE 92; RESP 18; TEMP 36.2; O2SAT 98
[2022-04-22 09:05] VITALS: BP 147/84; PULSE 86; RESP 20; TEMP 36.1; O2SAT 98
[2022-04-22 09:10] VITALS: BP 134/79; PULSE 82; RESP 19; O2SAT 99
--- NOTE | 2022-04-22 09:11 | P.OP_ITS ---
Operative Date/Time/Diagnoses Date of procedure: 04/22/22 Time of procedure: 09:11 Pre-op diagnosis: 39 week gestation with prior section Post-op diagnosis: same Procedure & Clinicians Procedure: Repeat low-transverse section Same procedure as scheduled: Yes Indications: 39 week gestation with prior section Surgeon: Shireen Romero Click Yes if Unassisted: No Cover Seamer: Debbie Mueller Anesthesia Type: Spinal Operative Notes Findings: Normal tubes, ovaries, uterus. Viable female Apgars of 9 and 9 weighing 8 lb 7 oz. Closure Type: primary Specimen(s): cord blood Intraoperative meds administered: Duramorph and Ketorolac Applied: Catheter (Valle) Estimated Blood Loss (mL): 500 Blood products transfused: none Procedure in detail: The patient was brought to the operating room where she underwent for anesthesia. She was placed in a supine position with a left lateral tilt. A Valle catheter was placed. Pulsatile stockings were placed and functional throughout the case. 2 g of Ancef were given IV prior to the incision. Warming was in place. The patient was prepped and draped in usual sterile fashion. A low transverse incision was made with a scalpel and the incision was carried down to the fascial layer which was incised transversely with scissors. The finance assistant did her side of the incision. The midline attachments are sep arated superiorly and inferiorly. Some bleeding was controlled Bovie. The rectus muscles were in the midline and the peritoneal incision was made with no damage to internal structures. The peritoneum was incised and superiorly and inferiorly. The incision was stretched with the surgeon and finance assistant placing traction. Bladder blade was placed and a bladder flap was developed and the bladder held away from the lower uterine segment. An incision was made in the uterus with the scalpel and the incision was extended with stretching. The head was elevated out of the abdomen and with fundal pressure by the finance assistant the baby was delivered. The infant was bulb suctioned for clear fluid and handed off to the warmer. Cord blood was collected. The placenta delivered spontaneously with traction. The uterus was cleaned with clean laps. The uterine incision was closed in 2 layers of 0 chromic suture the first a running locking layer the second an imbricating layer. The finance assistant was helping to expose the incision. The bladder peritoneum was repaired with 2- 0 Vicryl suture. The gutters were cleaned of any remaining fluids and ovaries and tubes were observed to be normal. Adequate hemostasis was noted. The perineum was closed with 2-0 Vicryl suture. The fascia layer was closed with 0 Vicryl suture with 2 stitches. The finance assistant repairing half the incision with helping to retract and expose the incision for the other half. The incision was irrigated and adequate hemostasis noted. The incision was closed with interrupted 3-0 Vicryl sutures and then a subcuticular stitch of 4-0 Vicryl suture. Steri-Strips were placed. The uterus was massaged to remove any clots. The patient went to recovery room in good condition. Counts of instruments and sponges were correct. Dr. Mueller was present throughout the case to assist with retraction, fundal pressure to deliver the , and suturing half the fascia. Complications: none [place] Baby 1: Gender: Female Presentation: vertex Position: Left Occiput Anterior Placental Delivery Description: Spontaneous Cord Vessel Description: 3 Vessels score (1 min): 9 score (5 min): 9 weight: 8 lb 7 oz Post-operative Condition: stable Disposition: other ( Center) Aftercare: routine postop (Routine post section)
[2022-04-22 09:20] VITALS: BP 138/73; PULSE 79; RESP 20; TEMP 36.1; O2SAT 98
[2022-04-22] MEDS: ONDANSETRON 4 MG/2 ML INJ IV (11:40)
[2022-04-22] MEDS: ACETAMINOPHEN 325 MG TABLET 650 MG PO (13:59)
[2022-04-22] MEDS: KETOROLAC 30 MG/ML VIAL IV ×2 (14:53→21:15)
[2022-04-22] MEDS: OXYCODONE/ACETAMINOPHEN 5/325 TABLET 1 TAB PO (20:02)
[2022-04-22 21:20] VITALS: BP 113/71; PULSE 80
[2022-04-22] MEDS: LABETALOL 100 MG TABLET PO (21:20)
[2022-04-23] MEDS: ACETAMINOPHEN 325 MG TABLET 650 MG PO ×4 (00:04→19:24)
[2022-04-23] MEDS: KETOROLAC 30 MG/ML VIAL IV (03:06)
[2022-04-23 05:16] LABS: Add Manual Diff / Slide Review NO; Basophils Absolute Auto 0 /uL (0-100); Basophils Percent Auto 0.3 % (0-2); Eosinophils Absolute Auto 100 /uL (0-450); Eosinophils Percent Auto 0.4 % (2-4); Hematocrit 23.8 % (36-46); Hemoglobin 8.1 g/dL (12.0-16.0); Lymphocytes Absolute Auto 1900 /uL (1100-4500); Lymphocytes Percent Auto 13.4 % (25-40); Mean Corpuscular HGB Conc 33.8 % (30-36); Mean Corpuscular Hemoglobin 27.2 PG (26-34); Mean Corpuscular Volume 80.4 fL (80-100); Monocytes Absolute Auto 1000 /uL (0-900); Monocytes Percent Auto 7.1 % (3-14); Neutrophils Absolute Auto 10900 /uL (1500-7000); Neutrophils Percent Auto 78.8 % (50-75); Platelet Count 203 X10^3/uL (150-400); Red Blood Cell Count 2.96 X10^6/uL (4.0-5.2); White Blood Cell Count 13.9 X10^3/uL (4.5-11.0)
--- NOTE | 2022-04-23 07:23 | P.PNOB_ITS ---
Subjective - OB Subjective Patient comments: incisional pain baby status: doing well and bottle feeding well feeding status: breast and bottle feeding Date Patient Seen: 04/23/22 Time Patient Seen: 07:23 Interval history: Postoperative day 1. Repeat low-transverse section Exam Vital Signs (past 8 hours): Blood pressure 110/68, pulse of 89, temperature 97.3? Oxygen Delivery Method Room Air Narrative Exam Narrative: Abdomen is soft, nontender. Uterus is firm, at U, nontender. Extremities with trace edema and nontender. Mild lochia. Objective Labs Result Diagrams: 04/23/22 05:00 Labs: Laboratory Results - last 24 hr 04/22/22 04/22/22 04/23/22 06:15 06:40 05:00 WBC 13.9 H RBC 2.96 L Hgb 8.1 L Hct 23.8 L MCV 80.4 MCH 27.2 MCHC 33.8 RDW 16.0 H Plt Count 203 Neut % (Auto) 78.8 H Lymph % (Auto) 13.4 L [place] % (Auto) 7.1 Eos % (Auto) 0.4 L Baso % (Auto) 0.3 Neut # (Auto) 42991 H Lymph # (Auto) 1900 [place] # (Auto) 1000 H Eos # (Auto) 100 Baso # (Auto) 0 SARS-CoV-2 (PCR) Negative Blood Type O Positive Antibody Screen Negative Assessment & Plan Plan day: 1 plan OB: routine postop care Time Spent With Patient Time: Total time spent is greater than 50% in coordination of care (as documented) at patient's floor/unit and/or counseling patient: Time with patient: less than 15 minutes
[2022-04-23 09:11] VITALS: TEMP 36.6
[2022-04-23] MEDS: DOCUSATE 100 MG CAPSULE 200 MG PO (09:11)
[2022-04-23] MEDS: IBUPROFEN 600 MG TABLET PO (09:11)
[2022-04-23 12:39] VITALS: TEMP 36.4
--- NOTE | 2022-04-23 17:29 | PM.OBDS.1 ---
Discharge Providers Provider Date of admission: 04/22/22 06:01 Discharge Date: 04/23/22 Primary care physician: Kristine Fuentes MD Consults: 04/22/22 09:52 Consult to Gas Treater Routine Comment: Discharge provider: Shireen Romero MD Summary Hospital Course Date Patient Seen: 04/23/22 Time Patient Seen: 17:30 Diagnoses: Repeat low-transverse section Hospital Course: Patient underwent a repeat low-transverse section on 04/22/2022. She is urinating, ambulatory, passing gas, pain is controlled with pain medicine. Patient is requesting discharge. She is bottle-feeding her baby at this time. Peripartum Data Infant Delivery Method: Section (Repeat) Procedures: Repeat low-transverse section complications: none (Acute on chronic blood-loss anemia) 1: Gender: Female Disposition of : home Discharge Diagnosis (1) Status post repeat low transverse section: Status: Acute (2) Acute on chronic blood loss anemia: Status: Acute (3) Chronic hypertension: Status: Acute Status at Discharge Cognitive/behavioral status at discharge: oriented Functional status at discharge: independent ambulation Overall status at discharge: patient is progressing back to baseline Time Spent with Patient Time attestation: Total time spent providing and/or coordinating discharge services: Time spent: Less than 30 minutes Objective Labs Result Diagrams: 04/23/22 05:00 Labs: Laboratory Results - last 24 hr 04/23/22 05:00 WBC 13.9 H RBC 2.96 L Hgb 8.1 L Hct 23.8 L MCV 80.4 MCH 27.2 MCHC 33.8 RDW 16.0 H Plt Count 203 Neut % (Auto) 78.8 H Lymph % (Auto) 13.4 L [place] % (Auto) 7.1 Eos % (Auto) 0.4 L Baso % (Auto) 0.3 Neut # (Auto) 49312 H Lymph # (Auto) 1900 [place] # (Auto) 1000 H Eos # (Auto) 100 Baso # (Auto) 0 Exam Vital Signs (past 8 hours): Blood pressure 110/68, pulse of 89, temperature 97.3?- 04/23/22 12:39 Temperature 97.6 F Oxygen Delivery Method Room Air Narrative Exam Narrative: Abdomen is soft, nontender. Uterus is firm, at U, nontender. Dressing is clean, dry, intact. Mild lochia. Extremities with trace edema and nontender. Patient is Rh positive, rubella immune, received Tdap in the 3rd trimester. Discharge Plan Discharge Plan Patient Disposition: Home Discharge orders & Medications Prescriptions: New docusate sodium 100 mg Capsule 100 mg PO DAILY Qty: 30 0RF ibuprofen 600 mg Tablet 600 mg PO Q6H PRN (Reason: Fever/Mild Pain (1-3)) Qty: 30 0RF oxycodone 5 mg Tablet 5 mg PO Q4H PRN (Reason: Pain, Moderate (4-6)) Qty: 30 0RF ferrous gluconate 324 mg (37.5 mg iron) tablet 324 mg PO DAILY Qty: 30 0RF Continued prenat.vits,coy,eib-pyqo-coqos Tablet 1 tab PO DAILY labetalol 100 mg tablet 100 mg PO DAILY Qty: 30 4RF Follow up/Referrals: Ariane Gomez MD [Physician] - 1 Week (Please follow up with Dr. Gomez on April 30 at 3pm for bandage removal. If you have [place] questions/concerns or need to reschedule please call ) Kristine Fuentes MD [Primary Care Provider] - Diet/Activity/Treatments Diet: Regular Activity: Nothing in vagina or lifting over 20 lb for 6 weeks Skin/Wound/Dressing Care Report to your healthcare provider any signs of infection, such as:: chills, fever and increased pain Dressing: Leave dressing on until 1 week exam Visit Report/Discharge Packet Instructions: DI for Prescription Opioid Use Stand Alone Forms: Discharge: Care Discharge Data Primary Care Provider: Kristine Fuentes
[2022-04-23 17:30] VITALS: BP 116/73; PULSE 809; RESP 16; TEMP 36.4
[2022-04-23 17:31] VITALS: BP 116/73; PULSE 98; RESP 16; TEMP 36.4
== END 2022-04-23 20:32 | disposition home or self-care (01) | DRG 787 ==
PROVIDERS: Admitting Provider Obstetrics & Gynecology; Family Provider Registered Nurse Women's Health Care, Ambulatory; PCP Family Medicine; Referring Provider Obstetrics & Gynecology; Visit Provider Specialist
PROC: 10D00Z1 Extraction of Products of Conception, Low, Open Approach (ICD-10-PCS; CPT 59514; principal; 2022-04-22 07:45)
DX: O34.211 Maternal care for low transverse scar from previous cesarean delivery (principal); D62 Acute posthemorrhagic anemia; O99.02 Anemia complicating childbirth; O13.4 Gestational [pregnancy-induced] hypertension without significant proteinuria, complicating childbirth; O24.420 Gestational diabetes mellitus in childbirth, diet controlled; O99.824 Streptococcus B carrier state complicating childbirth; Z3A.39 39 weeks gestation of pregnancy; Z37.0 Single live birth; Z20.822 Contact with and (suspected) exposure to COVID-19
CPT/HCPCS: 36415; 59050; 59514; 59515; 85025; 86850; 86900; 86901; 87635; C9803; J0690; J1885; J2250; J2274; J2405; J2590; J3010

== ENCOUNTER → 2022-06-24 10:22 | Outpatient (CLI) | payer OTHER, MEDICAID, SELFPAY ==
[2022-06-24 12:45] LABS: Glucose Fasting 91 mg/dL (70-100)
[2022-06-24 13:47] LABS: Glucose 1 Hour 162 mg/dL (70-170)
[2022-06-24 13:50] LABS: Glucose Tol Interpretation INTERPRETATION
[2022-06-24 13:57] LABS: Glucose 2 Hour 160 mg/dL (70-140)
== END ==
PROVIDERS: Family Provider Registered Nurse Women's Health Care, Ambulatory; PCP Family Medicine; Referring Provider Obstetrics & Gynecology; Visit Provider Obstetrics & Gynecology
DX: O24.419 Gestational diabetes mellitus in pregnancy, unspecified control (principal)
CPT/HCPCS: 82951; 82952

== ENCOUNTER 2022-07-07 15:44 | Emergency (ER) | payer OTHER, MEDICAID, SELFPAY ==
[2022-07-07 15:48] VITALS: BP 130/62; PULSE 110; RESP 18; TEMP 36.9; O2SAT 96
[2022-07-07 16:43] LABS: Influenza A - CEPHEID Flu A NEGATIVE (NEGATIVE); Influenza B - CEPHEID Flu B NEGATIVE (NEGATIVE); Respiratory Syncytial Virus POSITIVE (Negative)
[2022-07-07 16:44] LABS: COVID-19 CEPHEID 4-PLEX PCR Negative (Negative)
[2022-07-07] MEDS: KETOROLAC 10 MG TABLET PO (17:24)
[2022-07-07] MEDS: ACETAMINOPHEN 325 MG TABLET 975 MG PO (17:25)
[2022-07-07] MEDS: guaiFENesin ER 600 MG TAB PO (17:25)
[2022-07-07] MEDS: LORATADINE 10 MG TABLET PO (17:26)
--- NOTE | 2022-07-07 18:35 | ED.URI ---
HPI - URI/Sore Throat General Chief Complaint: Upper Respiratory Symptoms Stated Complaint: Chest Congestion/Cough Time Seen by Provider: 07/07/22 16:52 Source: patient Mode of arrival: Ambulatory Limitations: no limitations History of Present Illness HPI Narrative: This is a 26-year-old female with history of he denies other medical issues. Patient is 2-month-old was diagnosed with RSV earlier this week, she and her [id number] had both developed nasal congestion, and similar symptoms. Patient herself has not had any fevers she has had a cough she states she is had some green sputum. She did just chest pain or pressure. Some mild shortness of breath. No nausea or vomiting. No other GI or urinary symptoms. Patient denies prior surgeries. Denies tobacco abuse. Related Data Home Medications Medication Instructions Recorded Confirmed prenat.vits,coy,vtd-dszp-gqhqj 1 tab PO DAILY 01/10/22 06/20/22 Previous Rx's Medication Instructions Recorded labetalol 100 mg tablet 100 mg PO DAILY #30 tabs 02/14/22 docusate sodium 100 mg capsule 100 mg PO DAILY Prevent 04/23/22 constipation from iron #30 caps ferrous gluconate 324 mg (37.5 mg 324 mg PO DAILY Anemia #30 tabs 04/23/22 iron) tablet ibuprofen 600 mg tablet 600 mg PO Q6H PRN Fever/Mild Pain 05/06/22 (1-3) #60 tabs norelgestromin 150 mcg-e.estradiol 1 patch transdermal QWEEK #3 ea 06/04/22 35 mcg/24 hr weekly transderm patch (Xulane) Allergies Allergy/AdvReac Type Severity Reaction Status Date / Time No Known Drug Allergies Allergy Verified 06/20/22 13:58 Review of Systems Review of Systems ROS Unobtainable: All systems reviewed & are unremarkable except as noted in HPI and below Patient History Medical History delivery delivered Gestational diabetes Patient denies medical problems Surgical History [place] teeth extracted Family History Mother Diabetes mellitus Social History marital status: unmarried,living together number of children: 1 household members: significant other and children lives independently: Yes housing: condominium pets and animals: No education level: college (Associate degree) 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) special jazmyne needs: No travel history: over 6 months ago seatbelt use: always water heater temp set < 120 deg: Yes working smoke detector in home: Yes fire extinguisher in home: Yes carbon monox detector in home: Yes firearms in home: No do you feel safe at home: Yes Smoking Status: Never smoker second hand exposure: No alcohol intake: never substance use type: does not use during the past year weight has: other (Got again before original baby weight lost.) well-balanced diet: daily or most days daily servings fruits/ve-4 caffeine: Yes Type(s) of exercise: walking frequency: 1-2 times per week Smoking Status: Never smoker Substance Use Type: does not use Exam Narrative Exam Narrative: GEN: well nourished, well appearing female, alert and oriented x 3, patient appears to be in no acute distress. HEENT: Atraumatic, pupils are equal round reactive to light, extraocular movements are intact, nares are clear, TMs are clear with no fluid. Throat is clear without any exudates, erythema, tonsillar enlargement or uvular deviation HEART: Regular rate and rhythm without murmur, clicks, rubs. LUNGS:Lungs clear to auscultation, no wheezes, rales, crackles, chest moves symmetrically ABD:bowel sounds normal, soft, non-tender, no guarding, rebound, rigidity, no masses noted, no hepatosplenomegaly MSCL: Non-tender, no muscle atrophy, muscles strength 5/5 upper and lower extremities, full range of motion, normal gait NEURO:CN 2-12 intact, sensation normal SKIN: No Rash, erythema or other skin changes . Initial Vital Signs Initial Vital Signs: Vital Signs Temperature 98.5 F 07/07/22 15:48 Pulse Rate 110 H 07/07/22 15:48 Respiratory Rate 18 07/07/22 15:48 Blood Pressure 130/62 07/07/22 15:48 Pulse Oximetry 96 07/07/22 15:48 Oxygen Delivery Method 07/07/22 15:48 Course Orders Ordered: Discontinued Medications Acetaminophen (Acetaminophen 325 Mg Tablet) 975 mg PO NOW ONE Stop: 07/07/22 16:54 Last Admin: 07/07/22 17:25 Dose: 975 mg Documented By: MERLIN Guaifenesin (Guaifenesin Er 600 Mg Tab) 600 mg PO NOW ONE Stop: 07/07/22 16:54 Last Admin: 07/07/22 17:25 Dose: 600 mg Documented By: MERLIN Ketorolac Tromethamine (Ketorolac 10 Mg Tablet) 10 mg PO NOW ONE Stop: 07/07/22 16:54 Last Admin: 07/07/22 17:24 Dose: 10 mg Documented By: MERLIN Loratadine (Loratadine 10 Mg Tablet) 10 mg PO NOW ONE Stop: 07/07/22 16:54 Last Admin: 07/07/22 17:26 Dose: 10 mg Documented By: MERLIN Vital Signs Vital signs: Vital Signs - 8 hr 07/07/22 18:51 Temperature 97.8 F Pulse Rate 109 H Respiratory Rate 18 Blood Pressure 114/58 L Pulse Oximetry 100 MDM - URI/Sore Throat Lab Data Labs: Lab Results 07/07/22 Range/Units 15:57 SARS-CoV-2 (PCR) Negative (Negative) Influenza A (RT-PCR) Flu a negative (NEGATIVE) Influenza B (RT-PCR) Flu b negative (NEGATIVE) RSV (PCR) Positive A (Negative) [facility] Narrative Medical decision making narrative: 26-year-old healthy female with reassuring exam who is RSV positive with several RSV positive family members. Discussed return precautions. Discussed mom can use [id number] cough medication but not recommended for under age children. Return precautions discussed. Discharge Plan Departure Patient Disposition: Home Clinical Impression: Respiratory syncytial virus (RSV) Instructions: Respiratory Syncytial Virus Activity Restrictions/Additional Instructions: You are positive for RSV today. This is a viral infection that typically improves over 10 days. You can use Tylenol and/or ibuprofen as needed for fever You may find it helpful to use fwcf-qhk-[id number] cough medication or cold and sinus medication but this is not recommended for children. Please return for new shortness of breath, passing out, persistent vomiting, new chest pain or pressure, new swelling in her extremities or other new or concerning symptoms. Prescriptions: No Action prenat.vits,coy,ovz-vndj-wjjjl Tablet 1 tab PO DAILY ibuprofen 600 mg tablet 600 mg PO Q6H PRN (Reason: Fever/Mild Pain (1-3)) Qty: 60 3RF labetalol 100 mg tablet 100 mg PO DAILY Qty: 30 4RF Xulane 150-35 mcg/24 hr patch weekly 1 patch transdermal QWEEK Qty: 3 11RF Rx Instructions: apply once weekly for 3 weeks, and then no patch for 1 week docusate sodium 100 mg Capsule 100 mg PO DAILY Qty: 30 0RF ferrous gluconate 324 mg (37.5 mg iron) tablet 324 mg PO DAILY Qty: 30 0RF Referrals: Kristine Fuentes MD [Primary Care Provider] - Visit Report Forms: Patient Portal/API
[2022-07-07 18:51] VITALS: BP 114/58; PULSE 109; RESP 18; TEMP 36.6; O2SAT 100
== END 2022-07-07 19:09 | disposition home or self-care (01) ==
PROVIDERS: Emergency Medicine; Emergency Provider Emergency Medicine; Family Provider Registered Nurse Women's Health Care, Ambulatory; PCP Family Medicine
DX: J06.9 Acute upper respiratory infection, unspecified (principal); B97.4 Respiratory syncytial virus as the cause of diseases classified elsewhere; R06.02 Shortness of breath; Z20.822 Contact with and (suspected) exposure to COVID-19
CPT/HCPCS: 0241U; 99283

== ENCOUNTER → 2023-04-04 15:47 | Outpatient (CLI) | payer OTHER, MEDICAID, SELFPAY ==
[2023-04-05 07:03] LABS: RPR Screen Non Reactive (Non Reactive)
[2023-04-05 09:49] LABS: Hepatitis B Surf Ab Qualitativ Non Reactive (.)
[2023-04-07 10:07] LABS: Candida species Negative (Negative); Gardnerella vaginalis Positive (Negative); Trichomoas vaginalis Negative (Negative)
[2023-04-07 14:33] LABS: HIV 1 & 2 Ab/Ag 4th Gen Combo NEGATIVE (NEGATIVE); Hep C Virus Ab w/Reflex Quant NEGATIVE s/c (NEGATIVE)
[2023-04-10 02:11] LABS: Chlamydia trachomatis Negative (Negative); Mycoplasma genitalium Negative (Negative); Neisseria gonorrhoeae Negative (Negative)
== END ==
PROVIDERS: Family Provider Registered Nurse Women's Health Care, Ambulatory; PCP Family Medicine; Referring Provider Specialist; Visit Provider Specialist
DX: Z20.2 Contact with and (suspected) exposure to infections with a predominantly sexual mode of transmission (principal); N89.8 Other specified noninflammatory disorders of vagina; Z11.3 Encounter for screening for infections with a predominantly sexual mode of transmission
CPT/HCPCS: 36415; 86592; 86706; 86803; 87389; 87480; 87491; 87510; 87563; 87591; 87660

== ENCOUNTER 2025-05-28 21:09 | Emergency (ER) | payer OTHER, SELFPAY ==
[2025-05-28 21:27] VITALS: BP 158/85; PULSE 88; RESP 17; TEMP 35.9; O2SAT 98; BMI 33.8
[2025-05-29] VITALS (17 sets, daily range): BP systolic 143–170; BP diastolic 81–97; PULSE 92–123; RESP 14–18; O2SAT 95–99
[2025-05-29 03:33] LABS: Add Manual Diff / Slide Review NO; Hematocrit 39.3 % (36-46); Hemoglobin 13.7 g/dL (12.0-16.0); Lymphocytes Absolute Auto 1300 /uL (1100-4500); Mean Corpuscular HGB Conc 34.8 % (30-36); Mean Corpuscular Hemoglobin 28.0 PG (26-34); Mean Corpuscular Volume 80.5 fL (80-100); Platelet Count 302 X10^3/uL (150-400)
[2025-05-29] MEDS: MAG HYDROX/ALUMINUM/SIMETH SUS 30 ML, LIDOCAINE VISCOUS 2% 15 ML PO (03:33)
[2025-05-29] MEDS: SODIUM CHLORIDE 0.9% 1,000 ML 1000 ML IV (03:42)
[2025-05-29] MEDS: FAMOTIDINE 20 MG/2 ML VIAL IV (03:42)
--- NOTE | 2025-05-29 03:56 | ED.ABDPAIN ---
HPI - Abdominal Pain <Jose Mcleod MD - Last Filed: 05/29/25 16:28> General Chief Complaint: Abdominal Pain Stated Complaint: upper abd pain, bloating, getting intense Time Seen by Provider: 05/29/25 01:00 Source: patient Mode of arrival: Ambulatory History of Present Illness HPI narrative: 29-year-old female with history of 2 prior sections, no other abdominopelvic surgeries. Complains of epigastric pain since yesterday, some nausea, no emesis. No black or red stools. No injury or trauma. No history of ulcers known. She does not take regular or recent antacids. No prior upper endoscopy. She still has her gallbladder. Symptoms not necessarily worse after food. Denies painful frequent urination. Denies cough or chest pain or shortness of breath. Related Data Previous Rx's ?Medication ?Instructions ?Recorded norelgestromin 150 mcg-e.estradiol 1 patch topical QWEEK #3 patches 06/04/24 35 mcg/24 hr weekly transderm patch (Zafemy) hydrocodone 5 mg-acetaminophen 325 1 tab PO Q6H PRN pain #7 tabs 05/29/25 mg tablet Allergies Allergy/AdvReac Type Severity Reaction Status Date / Time No Known Drug Allergies Allergy Verified 05/28/25 21:26 Patient History <Jose Mcleod MD - Last Filed: 05/29/25 16:28> Medical History delivery delivered Gestational diabetes Patient denies medical problems Surgical History [place] teeth extracted Family History Mother Diabetes mellitus Social History (System 04/04/23 @ 15:58 by Eben Jarvis) marital status: unmarried,living together number of children: 1 household members: significant other and children lives independently: Yes housing: condominium pets and animals: No education level: college (Associate degree) 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) special jazmyne needs: No travel history: over 6 months ago seatbelt use: always water heater temp set < 120 deg: Yes working smoke detector in home: Yes fire extinguisher in home: Yes carbon monox detector in home: Yes firearms in home: No do you feel safe at home: Yes Smoking Status: Never smoker second hand exposure: No alcohol intake: never substance use type: does not use during the past year weight has: other (Got again before original baby weight lost.) well-balanced diet: daily or most days daily servings fruits/ve-4 caffeine: Yes Type(s) of exercise: walking frequency: 1-2 times per week Smoking Status: Never smoker Exam <Jose Mcleod MD - Last Filed: 05/29/25 16:28> Narrative Exam Narrative: GENERAL: Well-developed patient, in mild distress. HEAD: Atraumatic. Normocephalic. EYES: Pupils equal round and reactive. Extraocular motions intact. No scleral icterus. No injection or drainage. ENT: Nose without bleeding, purulent drainage. Throat without erythema, tonsillar hypertrophy or exudate. Airway patent. NECK: Trachea midline. Non tender CARDIOVASCULAR: Fast heart rate regular rhythm, without murmurs, gallops, or rubs. RESPIRATORY: Clear to auscultation. Breath sounds equal bilaterally. No wheezes, rales, or rhonchi. GASTROINTESTINAL: Abdomen soft, epigastric tenderness, nondistended. Normal bowel tones without rushes or tinkles. EXTREMITIES: No edema or joint tenderness. BACK: Nontender without deformity or crepitance. No flank tenderness. NEURO: AOx3. Motor functions grossly nonfocal. SKIN: No rash or erythema of visible areas Initial Vital Signs Initial Vital Signs: Vital Signs Temperature 96.6 F L 05/28/25 21: Pulse Rate 88 05/28/25 21:27 Respiratory Rate 17 05/28/25 21: Blood Pressure 158/85 H 05/28/25 21: Pulse Oximetry 98 05/28/25 21:27 Oxygen Delivery Method Room Air 05/28/25 21:27 <Margaret Garza DO - Last Filed: 05/29/25 18:30> Initial Vital Signs Initial Vital Signs: Vital Signs Temperature 96.6 F L 05/28/25 21:27 Pulse Rate 88 05/28/25 21:27 Respiratory Rate 17 05/28/25 21:27 Blood Pressure 158/85 H 05/28/25 21:27 Pulse Oximetry 98 05/28/25 21:27 Oxygen Delivery Method Room Air 05/28/25 21:27 Course <Jose Mcleod MD - Last Filed: 05/29/25 16:28> Orders Ordered: Discontinued Medications Al Hydrox/Mg Hydrox/Simethicone 30 ml/ Lidocaine HCl 15 ml 0 ml PO NOW ONE Stop: 05/29/25 03:32 Last Admin: 05/29/25 03:33 Dose: 45 ml Documented By: JONATHAN Famotidine (Famotidine 20 Mg/2 Ml Vial) 20 mg IV NOW GENARO Last Admin: 05/29/25 03:42 Dose: 20 mg Documented By: JONATHAN Hydromorphone HCl (Hydromorphone Hcl 0.5 Mg/0.5 Ml Syringe) 0.5 mg IV NOW ONE Stop: 05/29/25 04:05 Last Admin: 05/29/25 04:29 Dose: 0.5 mg Documented By: JONATHAN Sodium Chloride (Normal Saline 0.9%) 1,000 mls @ 1,000 mls/hr IV BOLUS ONE Stop: 05/29/25 04:33 Last Infusion: 05/29/25 06:26 Dose: Infused Documented By: Admin: 05/29/25 03:42 Dose: 1,000 mls/hr Documented By: JONATHAN Ketorolac Tromethamine (Ketorolac 30 Mg/Ml Vial) 15 mg IV NOW ONE Stop: 05/29/25 08:45 Last Admin: 05/29/25 09:16 Dose: 15 mg Documented By: MANINDER Ondansetron HCl (Ondansetron 4 Mg/2 Ml Inj) 4 mg IV NOW ONE Stop: 05/29/25 04:05 Last Admin: 05/29/25 04:29 Dose: 4 mg Documented By: JONATHAN Vital Signs Vital signs: Vital Signs - 8 hr 05/29/25 08:30 05/29/25 08:30 05/29/25 09:00 Pulse Rate 101 H Respiratory Rate Blood Pressure 170/89 H 159/97 H Pulse Oximetry 97 Oxygen Delivery Method 05/29/25 09:00 05/29/25 09:56 Pulse Rate 102 H 97 H Respiratory Rate 17 Blood Pressure 155/89 H Pulse Oximetry 97 99 Oxygen Delivery Method Room Air <Margaret Garza DO - Last Filed: 05/29/25 18:30> Orders Ordered: Discontinued Medications Al Hydrox/Mg Hydrox/Simethicone 30 ml/ Lidocaine HCl 15 ml 0 ml PO NOW ONE Stop: 05/29/25 03:32 Last Admin: 05/29/25 03:33 Dose: 45 ml Documented By: JONATHAN Famotidine (Famotidine 20 Mg/2 Ml Vial) 20 mg IV NOW GENARO Last Admin: 05/29/25 03:42 Dose: 20 mg Documented By: JONATHAN Hydromorphone HCl (Hydromorphone Hcl 0.5 Mg/0.5 Ml Syringe) 0.5 mg IV NOW ONE Stop: 05/29/25 04:05 Last Admin: 05/29/25 04:29 Dose: 0.5 mg Documented By: JONATHAN Sodium Chloride (Normal Saline 0.9%) 1,000 mls @ 1,000 mls/hr IV BOLUS ONE Stop: 05/29/25 04:33 Last Infusion: 05/29/25 06:26 Dose: Infused Documented By: Admin: 05/29/25 03:42 Dose: 1,000 mls/hr Documented By: JONATHAN Ketorolac Tromethamine (Ketorolac 30 Mg/Ml Vial) 15 mg IV NOW ONE Stop: 05/29/25 08:45 Last Admin: 05/29/25 09:16 Dose: 15 mg Documented By: MANINDER Ondansetron HCl (Ondansetron 4 Mg/2 Ml Inj) 4 mg IV NOW ONE Stop: 05/29/25 04:05 Last Admin: 05/29/25 04:29 Dose: 4 mg Documented By: JONATHAN Vital Signs Vital signs: Vital Signs - 8 hr 05/29/25 08:30 05/29/25 08:30 05/29/25 09:00 Pulse Rate 101 H Respiratory Rate Blood Pressure 170/89 H 159/97 H Pulse Oximetry 97 Oxygen Delivery Method 05/29/25 09:00 05/29/25 09:56 Pulse Rate 102 H 97 H Respiratory Rate 17 Blood Pressure 155/89 H Pulse Oximetry 97 99 Oxygen Delivery Method Room Air MDM - Abdominal Pain <Jose Mcleod MD - Last Filed: 05/29/25 16:28> Lab Data Attestation: I reviewed the patient's lab results. Lab results narrative: White blood cell count 54783, hemoglobin 13.7, platelets adequate. Glucose 130. Normal renal function. Serum CO2 20 mildly decreased. Normal electrolytes. Liver functions normal. Lipase 361 mild elevation only. Urinalysis not obviously infected. 05/29/25 03:15 05/29/25 03:15 Labs: Lab Results 05/29/25 05/29/25 Range/Units 03:15 04:18 WBC 16.7 H (4.5-11.0) X10^3/uL RBC 4.88 (4.0-5.2) X10^6/uL Hgb 13.7 (12.0-16.0) g/dL Hct 39.3 (36-46) % MCV 80.5 (80-100) fL MCH 28.0 (26-34) PG MCHC 34.8 (30-36) % RDW 13.9 (11.6-14.8) % Plt Count 302 (150-400) X10^3/uL Neut % (Auto) 88.1 H (50-75) % Lymph % (Auto) 7.6 L (25-40) % [place] % (Auto) 3.6 (3-14) % Eos % (Auto) 0.1 L (2-4) % Baso % (Auto) 0.6 (0-2) % Neut # (Auto) 34158 H (8811-9968) /uL Lymph # (Auto) 1300 (3782-1188) /uL [place] # (Auto) 600 (0-900) /uL Eos # (Auto) 0 (0-450) /uL Baso # (Auto) 100 (0-100) /uL Sodium 137 (137-145) mmol/L Potassium 3.8 (3.4-5.1) mmol/L Chloride 104 (98-107) mmol/L Carbon Dioxide 20 L (22-32) mmol/L BUN 13 (7-17) mg/dL Creatinine 0.60 (0.52-1.04) mg/dL Estimated GFR > 60 (>60) mL/min BUN/Creatinine Ratio 21.7 (6-22) Glucose 130 H (70-99) mg/dL Calcium 8.8 (8.4-10.2) mg/dL Total Bilirubin 0.6 (0.2-1.3) mg/dL AST 36 (14-36) IU/L ALT 27 (<35) IU/L Alkaline Phosphatase 58 (38-126) U/L Total Protein 8.1 (6.3-8.2) g/dL Albumin 4.4 (3.5-5.0) g/dL Globulin 3.7 (1.7-4.1) g/dL Albumin/Globulin Ratio 1.2 (1.0-2.8) Lipase 361 H (23-300) U/L HCG, Quant < 2.39 mIU/mL Urine RBC 0-1/hpf (0-5/HPF) Urine WBC 0-1/hpf (0-5/HPF) Ur Squamous Epith Cells 1-5 /hpf (0-5/HPF) Amorphous Sediment 1+ Urine Bacteria Few (2-10) H (None) Urine Mucus 2+ H (Negative) Ur Culture Indicated? Cult not indicated Vol Urine Centrifuged 10ml (spun) Point of care testing: Point of Care Testing Test Results Negative Urine Dip Bedside Urine Glucose Negative Bedside Urine Bilirubin - Negative Bedside Urine Ketone ++ 40 Urine Specific [place] 1.020 Bedside Urine Occult Blood ++ Bedside Urine pH 6.0 Bedside Urine Protein ++ 100 Bedside Urine Urobilinogen - Negative Bedside Urine Nitrite - Negative Bedside Urine Leukocytes - Negative Esterase MDM Narrative Medical decision making narrative: 29-year-old female with previous section x2, no other abdominopelvic surgeries, epigastric discomfort. Tachycardia noted on triage, no fever. Some tenderness epigastrium, not particularly tender right upper quadrant. DDx consider IRMA, gastritis, pancreatitis, biliary colic, cholecystitis, choledocholithiasis, other. IV Dilaudid, Zofran, Pepcid. Labs pending. Lab data: White blood cell count 86633, hemoglobin 13.7, platelets adequate. Glucose 130. Normal renal function. Serum CO2 20 mildly decreased. Normal electrolytes. Liver functions normal. Lipase 361 mild elevation only. Urinalysis not obviously infected. HCG neg. 0700, CT abdomen and pelvis ordered, results pending. Signed out to oncoming ED shift physician Dr. Garza. 05/29/25 Dr. Garza: Patient signed out to myself, patient is seen and evaluated by myself. Labs show white count of 16.7 hemoglobin is 13 platelets are appropriate, normal renal function, lipase is 361 but normal AST ALT bilirubin and alk-phos. HCG quant is 2.39. CT abdomen pelvis shows peripancreatic inflammatory changes compatible with a acute pancreatitis no peripancreatic fluid collection or CT findings of pancreatic necrosis. Fat containing structure within the upper pole of the left kidney measuring 2.4 cm nonobstructing right intrarenal calculi. No mesenteric or retroperitoneal lymphadenopathy no abdominal ascites umbilical hernia containing fat. Patient received a GI cocktail, fluids, Pepcid, Dilaudid and Zofran here in the department. Patient is feeling much improved she feels comfortable returning home. Reviewed her findings from today. Plan for clear liquid diet, short course of pain medication patient is to follow up for rechecked with her primary. She notes she has been on semaglutide although last dose was 2 weeks ago because she ran out. We discussed holding that medication for now as it could be a potential cause of her pancreatitis. She denies any alcohol use. Denies any other high-risk factors. Discussed return precautions and need for follow up which she expresses understanding. <Margaret Garza, DO - Last Filed: 05/29/25 18:30> Lab Data Labs: Lab Results 05/29/25 05/29/25 Range/Units 03:15 04:18 WBC 16.7 H (4.5-11.0) X10^3/uL RBC 4.88 (4.0-5.2) X10^6/uL Hgb 13.7 (12.0-16.0) g/dL Hct 39.3 (36-46) % MCV 80.5 (80-100) fL MCH 28.0 (26-34) PG MCHC 34.8 (30-36) % RDW 13.9 (11.6-14.8) % Plt Count 302 (150-400) X10^3/uL Neut % (Auto) 88.1 H (50-75) % Lymph % (Auto) 7.6 L (25-40) % [place] % (Auto) 3.6 (3-14) % Eos % (Auto) 0.1 L (2-4) % Baso % (Auto) 0.6 (0-2) % Neut # (Auto) 91720 H (9545-4650) /uL Lymph # (Auto) 1300 (3180-1547) /uL [place] # (Auto) 600 (0-900) /uL Eos # (Auto) 0 (0-450) /uL Baso # (Auto) 100 (0-100) /uL Sodium 137 (137-145) mmol/L Potassium 3.8 (3.4-5.1) mmol/L Chloride 104 (98-107) mmol/L Carbon Dioxide 20 L (22-32) mmol/L BUN 13 (7-17) mg/dL Creatinine 0.60 (0.52-1.04) mg/dL Estimated GFR > 60 (>60) mL/min BUN/Creatinine Ratio 21.7 (6-22) Glucose 130 H (70-99) mg/dL Calcium 8.8 (8.4-10.2) mg/dL Total Bilirubin 0.6 (0.2-1.3) mg/dL AST 36 (14-36) IU/L ALT 27 (<35) IU/L Alkaline Phosphatase 58 (38-126) U/L Total Protein 8.1 (6.3-8.2) g/dL Albumin 4.4 (3.5-5.0) g/dL Globulin 3.7 (1.7-4.1) g/dL Albumin/Globulin Ratio 1.2 (1.0-2.8) Lipase 361 H (23-300) U/L HCG, Quant < 2.39 mIU/mL Urine RBC 0-1/hpf (0-5/HPF) Urine WBC 0-1/hpf (0-5/HPF) Ur Squamous Epith Cells 1-5 /hpf (0-5/HPF) Amorphous Sediment 1+ Urine Bacteria Few (2-10) H (None) Urine Mucus 2+ H (Negative) Ur Culture Indicated? Cult not indicated Vol Urine Centrifuged 10ml (spun) Point of care testing: Point of Care Testing Test Results Negative Urine Dip Bedside Urine Glucose Negative Bedside Urine Bilirubin - Negative Bedside Urine Ketone ++ 40 Urine Specific [place] 1.020 Bedside Urine Occult Blood ++ Bedside Urine pH 6.0 Bedside Urine Protein ++ 100 Bedside Urine Urobilinogen - Negative Bedside Urine Nitrite - Negative Bedside Urine Leukocytes - Negative Esterase MDM Narrative Medical decision making narrative: 29-year-old female with previous section x2, no other abdominopelvic surgeries, epigastric discomfort. Tachycardia noted on triage, no fever. Some tenderness epigastrium, not particularly tender right upper quadrant. DDx consider IRMA, gastritis, pancreatitis, biliary colic, cholecystitis, choledocholithiasis, other. IV Dilaudid, Zofran, Pepcid. Labs pending. Lab data: White blood cell count 30806, hemoglobin 13.7, platelets adequate. Glucose 130. Normal renal function. Serum CO2 20 mildly decreased. Normal electrolytes. Liver functions normal. Lipase 361 mild elevation only. Urinalysis not obviously infected. 0700, CT abdomen and pelvis ordered, results pending. Signed out to [facility] ED shift physician Dr. Garza. 05/29/25 Dr. Garza: Patient signed out to myself, patient is seen and evaluated by myself. Labs show white count of 16.7 hemoglobin is 13 platelets are appropriate, normal renal function, lipase is 361 but normal AST ALT bilirubin and alk-phos. HCG quant is 2.39. CT abdomen pelvis shows peripancreatic inflammatory changes compatible with a acute pancreatitis no peripancreatic fluid collection or CT findings of pancreatic necrosis. Fat containing structure within the upper pole of the left kidney measuring 2.4 cm nonobstructing right intrarenal calculi. No mesenteric or retroperitoneal lymphadenopathy no abdominal ascites umbilical hernia containing fat. Patient received a GI cocktail, fluids, Pepcid, Dilaudid and Zofran here in the department. Patient is feeling much improved she feels comfortable returning home. Reviewed her findings from today. Plan for clear liquid diet, short course of pain medication patient is to follow up for rechecked with her primary. She notes she has been on semaglutide although last dose was 2 weeks ago because she ran out. We discussed holding that medication for now as it could be a potential cause of her pancreatitis. She denies any alcohol use. Denies any other high-risk factors. Discussed return precautions and need for follow up which she expresses understanding. Discharge Plan Departure Patient Disposition: Home Clinical Impression: Pancreatitis Instructions: DI for Pancreatitis Activity Restrictions/Additional Instructions: Your imaging today shows peripancreatic inflammatory changes consistent with the acute pancreatitis, this should be follow up with your physician. Your labs show a very mild elevation in your lipase but no other major changes. You need to follow up to have these rechecked and re-evaluated for your pancreatitis. This could possibly be related to your semaglutide but you should follow up with your physician to be evaluated for other risk factors. Would recommend clear fluid diet for the next 24 hours. You can take pain medication as prescribed. This medication can make you sleepy do not drive, perform hazardous activities or make any major decisions while taking it. This medication will make you constipated please take a stool softener once to twice daily until stools are soft and regular. Prescription sent to [facility] in [place]. Return if you develop fevers, rapidly worsening pain, persistent vomiting, any black or bloody stools, lightheadedness or passing out or other new or concerning changes. Prescriptions: New hydrocodone-acetaminophen 5-325 mg tablet 1 tab PO Q6H PRN (Reason: pain) Qty: 7 0RF No Action norelgestromin-ethin.estradiol [Zafemy] 150-35 mcg/24 hr patch weekly 1 patch topical QWEEK Qty: 3 11RF Referrals: Kristine Fuentes MD [Primary Care Provider, Family Practice] Stand Alone Forms: Patient Portal/API, Work Release Note
[2025-05-29 04:08] LABS: Alanine Aminotransferase 27 IU/L (<35); Albumin 4.4 g/dL (3.5-5.0); Albumin Globulin Ratio 1.2 (1.0-2.8); Alkaline Phosphatase 58 U/L (38-126); Blood Urea Nitrogen 13 mg/dL (7-17); Calcium 8.8 mg/dL (8.4-10.2); Carbon Dioxide 20 mmol/L (22-32); Chloride 104 mmol/L (98-107); Estimated Glomerular Filt Rate > 60 mL/min (>60); Globulin 3.7 g/dL (1.7-4.1); Glucose 130 mg/dL (70-99); Lipase 361 U/L (23-300); Potassium 3.8 mmol/L (3.4-5.1); Sodium 137 mmol/L (137-145); Total Protein 8.1 g/dL (6.3-8.2)
[2025-05-29 04:16] LABS: HEMOLYSIS 81 (0-50)
[2025-05-29 04:24] LABS: HCG Quantitative /Beta subunit < 2.39 mIU/mL
[2025-05-29] MEDS: ONDANSETRON 4 MG/2 ML INJ IV (04:29)
--- NOTE | 2025-05-29 05:16 | DI.CT.S_ITS ---
PROCEDURE: CT ABDOMEN PELVIS W CON INDICATIONS: abd pain TECHNIQUE: After the administration of intravenous contrast, axial sections acquired from the lung bases to the pubic symphysis. Coronal and sagittal reformats were performed. For radiation dose reduction, the following was used: automated exposure control, adjustment of mA and/or kV according to patient size. COMPARISON: None. FINDINGS: Image quality: Diagnostic. Lower Chest: No significant findings. ABDOMEN: Liver: The liver is diffusely decreased in attenuation without focal mass lesion. Gallbladder: No radiopaque gallstones or wall thickening. Biliary ducts: No biliary dilation. Pancreas: Peripancreatic inflammatory phlegmon without evidence of organized abscess or pseudocyst. No evidence of pancreatic necrosis Spleen: Size is within normal limits. Adrenal Glands: No adrenal nodules. Kidneys and Ureters: Fat containing nodule in the upper pole left kidney measures 2.4 cm nonobstructing right renal calculus. No hydronephrosis bilaterally. Stomach and Bowel: Normal colonic caliber, without significant wall thickening. Peritoneum: No abnormal intraperitoneal fluid. No free air. Ventral Wall: Ventral hernia contains fat without bowel involvement. Abdominal Nodes: No retroperitoneal or mesenteric adenopathy by size criteria. Vessels: Aorta and inferior vena cava are normal in size. PELVIS: Pelvic Organs: Unremarkable. Bladder: No bladder wall thickening, accounting for underdistention. Pelvic Nodes: No enlarged lymph nodes. Miscellaneous: No inguinal hernias are seen. Bones: No aggressive osseous abnormality. IMPRESSION: Acute pancreatitis. No evidence of organized abscess or pseudocyst Incidental left renal angiomyolipoma Hepatic steatosis Approved by: Dante Moreno M.D. on 05/29/2025 at 9:15
[2025-05-29 05:18] LABS: Culture Indicated Urine Cult Not Indicated
[2025-05-29] MEDS: KETOROLAC 30 MG/ML VIAL 15 MG IV (09:16)
== END 2025-05-29 09:57 | disposition home or self-care (01) ==
PROVIDERS: Emergency Medicine; Emergency Provider Emergency Medicine; Family Provider Registered Nurse Women's Health Care, Ambulatory; PCP Family Medicine
DX: K85.90 Acute pancreatitis without necrosis or infection, unspecified (principal); R11.0 Nausea
CPT/HCPCS: 36415; 74177; 80053; 81003; 81015; 81025; 83690; 84702; 85025; 96361; 96374; 96375; 99284; J1171; J1885; J2405; Q9967